=== PATIENT | male | born 1960 | race Caucasian/White ===

== ENCOUNTER 2019-12-19 13:48 | Inpatient (IN) | payer SELFPAY ==
[~2019-12-19] VITALS: Ht 180.3 cm; Wt 90.0 kg
[~2019-12-19 13:48] MED LIST: AMLO10TA4 PO; LAMO200T6 PO; LISI-130 PO; LITH300C PO; MIRT30TA PO
[2019-12-19] MEDS ORDERED: IV NORMAL SALINE 1000ML BAG 1,000 ML IV STA (14:17)
[2019-12-19] MEDS ORDERED: VANCOMYCIN 2 GM in IV NORMAL SALINE 500ML BAG 500 ML IV ONE (14:30)
--- NOTE | 2019-12-19 14:30 | PHYS DOC ---
Past Medical History Past Medical History: Anxiety, Bipolar, Depression, Hypertension, Other Additional Past Medical Histor: TESTICULAR CA Past Surgical History: Other Additional Past Surgical Histo: TESTICULAR SURGERY Smoking Status: Never Smoker Alcohol Use: Occasionally Drug Use: None Adult General Chief Complaint Chief Complaint: TOE PROBLEM HPI HPI Patient is a 59 year old male who presents with wound to his left great toe that started 2 days ago. The patient works at [employer] and has been wearing compression socks with multiple. The socks over the compression socks while working and states that he got a blister on his foot and then started dragging his foot due to the pain. He states the blister popped and then over the last several days he's had worsening wound that is now streaking up his left foot. He also has reduced sensation the left first digit. Denies pain as he has the reduced sensation. Review of Systems Review of Systems Constitutional: Denies fever or chills [] Eyes: Denies change in visual acuity, redness, or eye pain [] HENT: Denies nasal congestion or sore throat [] Respiratory: Denies cough or shortness of breath [] Cardiovascular: No additional information not addressed in HPI [] GI: Denies abdominal pain, nausea, vomiting, bloody stools or diarrhea [] : Denies dysuria or hematuria [] Musculoskeletal: Denies back pain or joint pain [] Integument: Reports wound to L 1st digit. Neurologic: Denies headache, focal weakness or sensory changes [] Endocrine: Denies polyuria or polydipsia [] Complete systems were reviewed and found to be within normal limits, except as documented in this note. Current Medications Current Medications Current Medications Medications (Trade) Dose Ordered Sig/Lis Start Time Stop Time Status Last Admin Dose Admin Fentanyl Citrate (Fentanyl 2ml Vial) 50 mcg PRN Q1HR PRN 12/19/19 16:00 12/20/19 15:59 Ondansetron HCl (Zofran) 4 mg PRN Q8HRS PRN 12/19/19 16:00 12/20/19 15:59 Piperacillin Sod/ Tazobactam Sod 3.375 gm/Sodium Chloride 50 ml @ 100 mls/hr 1X ONCE 12/19/19 15:45 12/19/19 16:14 Sodium Chloride 1,000 ml @ 1,000 mls/hr 1X STAT 12/19/19 14:17 12/19/19 15:16 DC 12/19/19 15:08 1,000 MLS/HR Vancomycin HCl 2 gm/Sodium Chloride 500 ml @ 250 mls/hr 1X ONCE 12/19/19 14:30 12/19/19 16:29 12/19/19 15:09 250 MLS/HR Allergies Allergies Allergies Coded Allergies Type Severity Reaction Last Updated Verified codeine Allergy Intermediate 06/11/19 Yes cyclobenzaprine Allergy Intermediate 06/11/19 Yes naproxen Allergy Intermediate 06/11/19 Yes tramadol Allergy Intermediate 06/11/19 Yes Physical Exam Physical Exam Constitutional: Well developed, well nourished, no acute distress, non-toxic appearance. [] HENT: Normocephalic, atraumatic, bilateral external ears normal, oropharynx moist, no oral exudates, nose normal. [] Eyes: PERRLA, EOMI, conjunctiva normal, no discharge. [] Neck: Normal range of motion, no tenderness, supple, no stridor. [] Cardiovascular:Heart rate regular rhythm, no murmur [] Lungs & Thorax: Bilateral breath sounds clear to auscultation [] Skin: demaculated skin with white strips showing in the fascia of the dorsal great toe, 1st digit has severe edema with streaking up the L foot. Back: No tenderness, no CVA tenderness. [] Extremities: See note on skin. Reduced sensation to L great toe. Neurologic: Alert and oriented X 3, normal motor function, normal sensory function, no focal deficits noted. [] Psychologic: Affect normal, judgement normal, mood normal. [] Current Patient Data Vital Signs Vital Signs Date Time Temp Pulse Resp B/P (MAP) Pulse Ox O2 Delivery O2 Flow Rate FiO2 12/19/19 15:41 70 14 149/68 (95) 98 Room Air 12/19/19 14:05 98.6 98.6 Lab Values Laboratory Tests Test 12/19/19 14:49 White Blood Count 6.3 x10^3/uL (4.0-11.0) Red Blood Count 3.29 x10^6/uL (4.30-5.70) L Hemoglobin 10.7 g/dL (13.0-17.5) L Hematocrit 30.9 % (39.0-53.0) L Mean Corpuscular Volume 94 fL (79-100) Mean Corpuscular Hemoglobin 33 pg (25-35) Mean Corpuscular Hemoglobin Concent 35 g/dL (31-37) Red Cell Distribution Width 13.5 % (11.5-14.5) Platelet Count 133 x10^3/uL (140-400) L Neutrophils (%) (Auto) 69 % (31-73) Lymphocytes (%) (Auto) 21 % (24-48) L Monocytes (%) (Auto) 8 % (0-9) Eosinophils (%) (Auto) 2 % (0-3) Basophils (%) (Auto) 1 % (0-3) Neutrophils # (Auto) 4.3 x10^3/uL (1.8-7.7) Lymphocytes # (Auto) 1.3 x10^3/uL (1.0-4.8) Monocytes # (Auto) 0.5 x10^3/uL (0.0-1.1) Eosinophils # (Auto) 0.1 x10^3/uL (0.0-0.7) Basophils # (Auto) 0.0 x10^3/uL (0.0-0.2) Sodium Level 136 mmol/L (136-145) Potassium Level 4.3 mmol/L (3.5-5.1) Chloride Level 101 mmol/L (98-107) Carbon Dioxide Level 26 mmol/L (21-32) Anion Gap 9 (6-14) Blood Urea Nitrogen 14 mg/dL (8-26) Creatinine 1.4 mg/dL (0.7-1.3) H Estimated GFR (Cockcroft-Gault) 51.7 BUN/Creatinine Ratio 10 (6-20) Glucose Level 101 mg/dL (70-99) H Lactic Acid Level 0.7 mmol/L (0.4-2.0) Calcium Level 9.2 mg/dL (8.5-10.1) Total Bilirubin 0.5 mg/dL (0.2-1.0) Aspartate Amino Transferase (AST) 28 U/L (15-37) Alanine Aminotransferase (ALT) 28 U/L (16-63) Alkaline Phosphatase 91 U/L (46-116) Total Protein 7.6 g/dL (6.4-8.2) Albumin 4.0 g/dL (3.4-5.0) Albumin/Globulin Ratio 1.1 (1.0-1.7) Laboratory Tests 12/19/19 14:49 Laboratory Tests 12/19/19 14:49 EKG EKG [] Radiology/Procedures Radiology/Procedures [][facility] [address] [place] [address] IMAGING REPORT Signed PATIENT: MELVINA GUSMAN ACCOUNT: [id number] : 1960 LOCATION: ER AGE: 59 SEX: M EXAM STATUS: REG ER ORD. PHYSICIAN: NAN PULIDO APRN REASON: wound to left foot PROCEDURE: FOOT LEFT 3V Exam performed:Left foot 3 views. Indication: Left foot injury Date of Service: 12/19/2019. Comparison: None available Three views left foot findings: Normal alignment is preserved. There is no acute fracture or dislocation. There is extensive soft tissue swelling in relation to the first toe consistent with a given history of bone. No soft tissue foreign body is seen. There is no periosteal reaction or bony erosion. Impression: 1. Diffuse soft tissue swelling around the first toe without underlying bony abnormality. Electronically signed by: Noelle Miramontes MD (12/19/2019 2:50 PM) [facility] DICTATED and SIGNED BY: NOELLE MIRAMONTES MD DATE: 12/19/19 5482 Course & Med Decision Making Course & Med Decision Making Pertinent Labs and Imaging studies reviewed. (See chart for details) Will get X-ray, labs, and will start on vancomycin and Zosyn.. Labs are unremarkable. Discussed patient with Dr. Fairchild who agrees to admission. Dragon Disclaimer Dragon Disclaimer This electronic medical record was generated, in whole or in part, using a voice recognition dictation system. Departure Departure Impression: Primary Impression: Cellulitis of foot, left Disposition: ADMITTED INPATIENT Condition: STABLE Referrals: UNKNOWN PCP NAME (PCP) NAN PULIDO APRN Dec 19, 2019 14:30
--- NOTE | 2019-12-19 14:52 | RAD ---
Exam performed:Left foot 3 views. Indication: Left foot injury Date of Service: 12/19/2019. Comparison: None available Three views left foot findings: Normal alignment is preserved. There is no acute fracture or dislocation. There is extensive soft tissue swelling in relation to the first toe consistent with a given history of bone. No soft tissue foreign body is seen. There is no periosteal reaction or bony erosion. Impression: 1. Diffuse soft tissue swelling around the first toe without underlying bony abnormality. Electronically signed by: Noelle Miramontes MD (12/19/2019 2:50 PM) [facility]
[2019-12-19 15:01] LABS: BASO % 1 % (0-3); EOS # 0.1 x10^3/uL (0.0-0.7); EOS % 2 % (0-3); HEMATOCRIT 30.9 % (39.0-53.0); HEMOGLOBIN 10.7 g/dL (13.0-17.5); LYMPH # 1.3 x10^3/uL (1.0-4.8); LYMPH % 21 % (24-48); MEAN CORPUSCULAR HEMOGLOBIN 33 pg (25-35); MEAN CORPUSCULAR HGB CONC 35 g/dL (31-37); MEAN CORPUSCULAR VOLUME 94 fL (79-100); MONO # 0.5 x10^3/uL (0.0-1.1); MONO % 8 % (0-9); NEUT # 4.3 x10^3/uL (1.8-7.7); NEUT % 69 % (31-73); PLATELET COUNT 133 x10^3/uL (140-400); RED BLOOD COUNT 3.29 x10^6/uL (4.30-5.70); RED CELL DISTRIBUTION WIDTH 13.5 % (11.5-14.5); WHITE BLOOD COUNT 6.3 x10^3/uL (4.0-11.0)
[2019-12-19 15:18] LABS: CALCIUM 9.2 mg/dL (8.5-10.1); CREATININE 1.4 mg/dL (0.7-1.3); GFR 51.7; POTASSIUM 4.3 mmol/L (3.5-5.1)
[2019-12-19 15:22] LABS: ALBUMIN/GLOBULIN RATIO 1.1 (1.0-1.7); TOTAL BILIRUBIN 0.5 mg/dL (0.2-1.0); TOTAL PROTEIN 7.6 g/dL (6.4-8.2)
[2019-12-19] MEDS ORDERED: PIPERACILLIN/TAZOBACTAM 3.375 GM in IV NORMAL SALINE 50ML 50 ML IV ONE (15:45)
[2019-12-19] MEDS ORDERED: ONDANSETRON PF 4 MG/2 ML VIAL. IV PRN (16:00)
[2019-12-19] MEDS ORDERED: fentaNYL PF VIAL 100 MCG/2 ML VIAL IV PRN (16:00)
[2019-12-19 16:30] VITALS: BP 150/65
[2019-12-19] MEDS ORDERED: LAMO300T2 PO (17:18)
[2019-12-19] MEDS ORDERED: GABA300C18 PO (17:18)
[2019-12-19] MEDS ORDERED: ESZO2TAB21 PO (17:18)
[2019-12-19] MEDS ORDERED: FLU VAX QS 2019-20 (36MOS+)/PF 0.5 ML SYRINGE. VAX IM ONE (18:00)
[2019-12-19 19:00] VITALS: BP 134/61
[2019-12-19] MEDS ORDERED: PIP/TAZO PER PHARMACY MC PRN (19:30)
[2019-12-19] MEDS: VANCOMYCIN PER PHARMACY MC PRN (19:42)
--- NOTE | 2019-12-19 19:44 | NUR ---
Pharmacy Vancomycin Dosing Note S:Consulted to monitor and dose vancomycin started 12/19/19. O:MELVINA GUSMAN is a 59 year old M with Cellulitis . Height: 5 feet, 11 inches Weight: 90.0 kg [place] Body Weight: 75.30 Adjusted Body Weight: 81.18 Dosing Weight: Actual Other Antibiotics: ZOSYN LABS: Last BUN: 14 Last Creatinine: 1.4 Creatinine Clearance: 64 mL/min Last WBC: 6.3 Last Procalcitonin: Tmax (past 24 hours): 98.6 Microbiology: I/O: Drug Levels: Last level: on at Last dose given 12/19/19 at 1509 Vancomycin Dosing: Loading Dose: 2000 mg x1 Dosing Weight: Actual Target Trough: 10-20 A: Based on: Body weight and renal function P: 1. After loading dose, start Vancomycin 1250 mg IV q12h 2. Follow up Trough level on 12/21/19 at 0230 3. Pharmacy will continue to monitor, follow and adjust therapy as needed. [facility], 12/19/19 1944
[2019-12-19] MEDS ORDERED: IBUPROFEN 400 MG TABLET. PO PRN (19:45)
--- NOTE | 2019-12-19 19:50 | PDOC1 ---
History and Physical Date of Admission Date of Admission DATE: 12/19/19 TIME: 19:49 Identification/Chief Complaint Chief Complaint Toe pain History of Present Illness History of Present Illness Mr Galvan is a 59 yo M w/ PMHx Anxiety, Bipolar, Depression, Hypertension, te sticular cancer s/p orchiectomy who presents with wound to his left great toe that started 2 days ago. He states works at [employer] and has been wearing compression socks with multiple other layers of socks and wearing socks to bed. The socks over the compression socks while working and states that he got a blister on his foot and then started dragging his foot due to the pain. He s tates the blister popped and then over the last several days he's had worsening wound that is now streaking up his left foot. He also has reduced sensation the left first digit. Denies pain as he has the reduced sensation. Xray shows no bony destruction but soft tissue swelling. Cr 1.4 with no history of renal issues Past Medical History Cardiovascular: HTN Psych: Anxiety, Bipolar, Depression Past Surgical History Past Surgical History: Other (orchiectomy) Family History Family History: Depression, Hypertension Social History Smoke: No ALCOHOL: heavy Drugs: None Current Problem List Problem List Problems Medical Problems: (1) Cellulitis of foot, left Status: Acute Current Medications Current Medications Current Medications Sodium Chloride 1,000 ml @ 1,000 mls/hr 1X STAT IV Last administered on 12/19/19at 15:08; Start 12/19/19 at 14:17; Stop 12/19/19 at 15:16; Status DC Vancomycin HCl 2 gm/Sodium Chloride 500 ml @ 250 mls/hr 1X ONCE IV Last administered on 12/19/19at 15:09; Start 12/19/19 at 14:30; Stop 12/19/19 at 16:29; Status DC Piperacillin Sod/ Tazobactam Sod 3.375 gm/Sodium Chloride 50 ml @ 100 mls/hr 1X ONCE IV Last administered on 12/19/19at 18:33; Start 12/19/19 at 15:45; Stop 12/19/19 at 16:14; Status DC Ondansetron HCl (Zofran) 4 mg PRN Q8HRS PRN IV NAUSEA/VOMITING; Start 12/19/19 at 16:00; Stop 12/20/19 at 15:59 Fentanyl Citrate (Fentanyl 2ml Vial) 50 mcg PRN Q1HR PRN IV PAIN; Start 12/19/19 at 16:00; Stop 12/20/19 at 15:59 Influenza Virus Vaccine Quadrival (Afluria Quad 2019-20 (3yr Up) Syringe) 0.5 ml ONCE ONCE VAX IM ; Start 12/19/19 at 18:00; Stop 12/19/19 at 18:01; Status DC Acetaminophen (Tylenol) 650 mg PRN Q6HRS PRN PO MILD PAIN 1-3; Start 12/19/19 at 19:30 Piperacillin Sod/ Tazobactam Sod (Zosyn Per Pharmacy) 1 each PRN DAILY PRN MC SEE COMMENTS; Start 12/19/19 at 19:30 Vancomycin HCl (Vanco Per Pharmacy) 1 each PRN DAILY PRN MC SEE COMMENTS Last administered on 12/19/19at 19:42; Start 12/19/19 at 19:30 Sodium Chloride 1,000 ml @ 75 mls/hr [id number] IV ; Start 12/19/19 at 20:00 Amlodipine Besylate (Norvasc) 10 mg DAILY08 PO ; Start 12/20/19 at 08:00 Gabapentin (Neurontin) 300 mg TID PO ; Start 12/19/19 at 21:00 Zolpidem Tartrate (Ambien) 5 mg QHS PO ; Start 12/19/19 at 21:00 Lamotrigine (LaMICtal) 300 mg DAILY PO ; Start 12/20/19 at 09:00 Mirtazapine (Remeron) 30 mg QHS PO ; Start 12/19/19 at 21:00 Piperacillin Sod/ Tazobactam Sod 3.375 gm/Sodium Chloride 50 ml @ 100 mls/hr Q6HRS IV ; Start 12/20/19 at 00:00 Vancomycin HCl 1.25 gm/Sodium Chloride 250 ml @ 167 mls/hr Q12H IV ; Start 12/20/19 at 03:00 Vancomycin HCl (Vancomycin Trough Level) 1 each 1X ONCE MC ; Start 12/21/19 at 02:30; Stop 12/21/19 at 02:31 Lactobacillus Rhamnosus (Culturelle) 1 cap BID PO ; Start 12/19/19 at 21:00 Ibuprofen (Motrin) 400 mg PRN Q6HRS PRN PO INFLAMMATION; Start 12/19/19 at 19:45 Active Scripts Active Reported Gabapentin (Gabapentin) 300 Mg Capsule 300 Mg PO TID Lunesta (Eszopiclone) 2 Mg Tablet 2 Mg PO HS Lamotrigine 300 Mg Tab.er.24 300 Mg PO DAILY Lisinopril 40 Mg Tablet 40 Mg PO DAILY Norvasc (Amlodipine Besylate) 10 Mg Tablet 10 Mg PO DAILY08 Remeron (Mirtazapine) 30 Mg Tablet 30 Mg PO QHS Allergies Allergies: Coded Allergies: codeine (Verified Allergy, Intermediate, 06/11/19) cyclobenzaprine (Verified Allergy, Intermediate, 06/11/19) tramadol (Verified Allergy, Intermediate, 06/11/19) ROS General: YES: Fatigue, Malaise; No: Chills, Night Sweats, Appetite, Other PSYCHOLOGICAL ROS: YES: Anxiety; No: Behavioral Disorder, Concentration difficultie, Decreased libido, D epression, Disorientation, Hallucinations, Hostility, Irritablity, Memory difficulties, Mood Swings, Obsessive thoughts, Physical abuse, Sexual abuse, Sleep disturbances, Suicidal ideation, Other Eyes: No Blurry vision, No Decreased vision, No Double vision, No Dry eyes, No Excessive tearing, No Eye Pain, No Itchy Eyes, No Loss of vision, No Photophobia, No Scotomata, No Uses contacts, No Uses glasses, No Other HEENT: No: Heacaches, Visual Changes, Hearing change, Nasal congestion, Nasal discharge, Oral lesions, Sinus pain, Sore Throat, Epistaxis, Sneezing, Snoring, Tinnitus, Vertigo, Vocal changes, Other ALLERGY AND IMMUNOLOGY: No: Hives, Insect Bite Sensitivity, Itchy/Watery Eyes, Nasal Congestion, Post Nasal Drip, Seasonal Allergies, Other Hematological and Lymphatic: No: Bleeding Problems, Blood Clots, Blood Transfusions, Brusing, Night Sweats, Pallor, Swollen Lymph Nodes, Other ENDOCRINE: No: Breast Changes, Galactorrhea, Hair Pattern Changes, Hot Flashes, Malaise/lethargy, Mood Swings, Palpitations, Polydipsia/polyuria, Skin Changes, Temperature Intolerance, Unexpected Weight Changes, Other Breast: No New/Changing Breast Lumps, No Nipple changes, No Nipple discharge, No Other Respiratory: No: Cough, Hemoptysis, Orthopnea, Pleuritic Pain, Shortness of breath, SOB with excertion, Sputum Changes, Stridor, Tachypnea, Wheezing, Other Cardiovascular: No Chest Pain, No Palpitations, No Orthopnea, No Paroxysmal Noc. Dyspnea, No Edema, No Lt Headedness, No Other Gastrointestinal: No Nausea, No Vomiting, No Abdominal Pain, No Diarrhea, No Constipation, No Melena, No Hematochezia, No Other Genitourinary: No Dysuria, No Frequency, No Incontinence, No Hematuria, No Retention, No Discharge, No Urgency, No Pain, No Flank Pain, No Other, No , No , No , No , No , No , No Musculoskeletal: Yes Gait Disturbance, Yes Joint Swelling; No Joint Pain, No Joint Stiffness, No Muscle Pain, No Muscular Weakness, No Pain In:, No Swelling In:, No Other Neurological: Yes Gait Disturbance, Yes Numbness/Tingling; No Behavorial Changes, No Bowel/Bladder ControlChng, No Confusion, No Dizziness, No Headaches, No Impaired Coord/balance, No Memory Loss, No Seizures, No Speech Problems, No Tremors, No Visual Changes, No Weakness, No Other Skin: Yes Dry Skin; No Eczema, No Hair Changes, No Lumps, No Mole Changes, No Mottling, No Nail Changes, No Pruritus, No Rash, No Skin Lesion Changes, No Other, No Acne Physical Exam General: Alert, Oriented X3, Cooperative, No acute distress HEENT: Atraumatic, PERRLA, EOMI, Mucous membr. moist/pink Lungs: Clear to auscultation, Normal air movement Heart: S1S2, RRR, no thrills, no rubs, no gallops, no murmurs Abdomen: Normal bowel sounds, Soft, No tenderness, No hepatosplenomegaly, No masses Rectal Exam: not examined Extremities: No clubbing, No cyanosis, No edema, Normal pulses, Other (left cage tender and swollen) Skin: No breakdown, Other (left great toe with open wound) Neuro: Normal speech, Strength at 5/5 X4 ext, Normal tone, Sensation intact, Cranial nerves 3-12 NL, Reflexes 2+ Psych/Mental Status: Mental status NL, Mood NL Vitals Vitals Vital Signs Date Time Temp Pulse Resp B/P (MAP) Pulse Ox O2 Delivery O2 Flow Rate FiO2 12/19/19 18:22 Room Air 12/19/19 16:30 98.1 79 18 150/65 (93) 99 98.1 Labs Labs Laboratory Tests Test 12/19/19 14:49 White Blood Count 6.3 x10^3/uL (4.0-11.0) Red Blood Count 3.29 x10^6/uL (4.30-5.70) Hemoglobin 10.7 g/dL (13.0-17.5) Hematocrit 30.9 % (39.0-53.0) Mean Corpuscular Volume 94 fL (79-100) Mean Corpuscular Hemoglobin 33 pg (25-35) Mean Corpuscular Hemoglobin Concent 35 g/dL (31-37) Red Cell Distribution Width 13.5 % (11.5-14.5) Platelet Count 133 x10^3/uL (140-400) Neutrophils (%) (Auto) 69 % (31-73) Lymphocytes (%) (Auto) 21 % (24-48) Monocytes (%) (Auto) 8 % (0-9) Eosinophils (%) (Auto) 2 % (0-3) Basophils (%) (Auto) 1 % (0-3) Neutrophils # (Auto) 4.3 x10^3/uL (1.8-7.7) Lymphocytes # (Auto) 1.3 x10^3/uL (1.0-4.8) Monocytes # (Auto) 0.5 x10^3/uL (0.0-1.1) Eosinophils # (Auto) 0.1 x10^3/uL (0.0-0.7) Basophils # (Auto) 0.0 x10^3/uL (0.0-0.2) Sodium Level 136 mmol/L (136-145) Potassium Level 4.3 mmol/L (3.5-5.1) Chloride Level 101 mmol/L (98-107) Carbon Dioxide Level 26 mmol/L (21-32) Anion Gap 9 (6-14) Blood Urea Nitrogen 14 mg/dL (8-26) Creatinine 1.4 mg/dL (0.7-1.3) Estimated GFR (Cockcroft-Gault) 51.7 BUN/Creatinine Ratio 10 (6-20) Glucose Level 101 mg/dL (70-99) Lactic Acid Level 0.7 mmol/L (0.4-2.0) Calcium Level 9.2 mg/dL (8.5-10.1) Total Bilirubin 0.5 mg/dL (0.2-1.0) Aspartate Amino Transf (AST/SGOT) 28 U/L (15-37) Alanine Aminotransferase (ALT/SGPT) 28 U/L (16-63) Alkaline Phosphatase 91 U/L (46-116) Total Protein 7.6 g/dL (6.4-8.2) Albumin 4.0 g/dL (3.4-5.0) Albumin/Globulin Ratio 1.1 (1.0-1.7) Laboratory Tests Test 12/19/19 14:49 White Blood Count 6.3 x10^3/uL (4.0-11.0) Red Blood Count 3.29 x10^6/uL (4.30-5.70) Hemoglobin 10.7 g/dL (13.0-17.5) Hematocrit 30.9 % (39.0-53.0) Mean Corpuscular Volume 94 fL (79-100) Mean Corpuscular Hemoglobin 33 pg (25-35) Mean Corpuscular Hemoglobin Concent 35 g/dL (31-37) Red Cell Distribution Width 13.5 % (11.5-14.5) Platelet Count 133 x10^3/uL (140-400) Neutrophils (%) (Auto) 69 % (31-73) Lymphocytes (%) (Auto) 21 % (24-48) Monocytes (%) (Auto) 8 % (0-9) Eosinophils (%) (Auto) 2 % (0-3) Basophils (%) (Auto) 1 % (0-3) Neutrophils # (Auto) 4.3 x10^3/uL (1.8-7.7) Lymphocytes # (Auto) 1.3 x10^3/uL (1.0-4.8) Monocytes # (Auto) 0.5 x10^3/uL (0.0-1.1) Eosinophils # (Auto) 0.1 x10^3/uL (0.0-0.7) Basophils # (Auto) 0.0 x10^3/uL (0.0-0.2) Sodium Level 136 mmol/L (136-145) Potassium Level 4.3 mmol/L (3.5-5.1) Chloride Level 101 mmol/L (98-107) Carbon Dioxide Level 26 mmol/L (21-32) Anion Gap 9 (6-14) Blood Urea Nitrogen 14 mg/dL (8-26) Creatinine 1.4 mg/dL (0.7-1.3) Estimated GFR (Cockcroft-Gault) 51.7 BUN/Creatinine Ratio 10 (6-20) Glucose Level 101 mg/dL (70-99) Lactic Acid Level 0.7 mmol/L (0.4-2.0) Calcium Level 9.2 mg/dL (8.5-10.1) Total Bilirubin 0.5 mg/dL (0.2-1.0) Aspartate Amino Transf (AST/SGOT) 28 U/L (15-37) Alanine Aminotransferase (ALT/SGPT) 28 U/L (16-63) Alkaline Phosphatase 91 U/L (46-116) Total Protein 7.6 g/dL (6.4-8.2) Albumin 4.0 g/dL (3.4-5.0) Albumin/Globulin Ratio 1.1 (1.0-1.7) Images Images 1. Diffuse soft tissue swelling around the first toe without underlying bony abnormality. VTE Prophylaxis Ordered VTE Prophylaxis Devices: No VTE Pharmacological Prophylaxi: Yes Assessment/Plan Assessment/Plan A/P: Left great toe open wound - wound care, dressing, pain control, antibiotics Left foot cellulitis - with streaking. requires inpatient given the severity and quick onset, would have failed outpatient therapy. Vancomycin and zosyn to cover gram positive and gram negatives Polyneuropathy - 2/2 heavy ETOH abuse historically, states he is quitting [facility] - likely vasomotor nephropathy, will give IVF, watch renal function given his antibiotics Anxiety, Bipolar, Depression - will cont lamictal, gabapentin Hypertension - cont meds Testicular cancer s/p orchiectomy - in remission FEN - General diet PPX - lovenox FULL CODE Dispo - inpatient for aggressive left foot cellulitis LILY PARTIDA MD Dec 19, 2019 19:50
[2019-12-19] MEDS: GABAPENTIN 300 MG CAPSULE. PO SCH (21:00)
[2019-12-19] MEDS: ZOLPIDEM 5 MG TABLET. PO SCH (21:00)
[2019-12-19] MEDS: MIRTAZAPINE 15 MG TABLET PO SCH (21:00)
[2019-12-19] MEDS: LACTOBACILLUS RHAMNOSUS GG 1 CAPSULE. PO SCH (21:00)
[2019-12-19] MEDS: IV NORMAL SALINE 1000ML BAG 1,000 ML IV SCH (21:21)
[2019-12-19] MEDS: ACETAMINOPHEN 325 MG TABLET. PO PRN (21:22)
[2019-12-19 23:00] VITALS: BP 108/59
[2019-12-20] VITALS (12 sets, daily range): BP systolic 105–136; BP diastolic 46–71
[2019-12-20] MEDS: PIPERACILLIN/TAZOBACTAM 3.375 GM in IV NORMAL SALINE 50ML 50 ML IV SCH ×4 (00:48→18:32)
[2019-12-20] MEDS: VANCOMYCIN 1.25 GM in IV NORMAL SALINE 250ML 250 ML IV SCH ×2 (02:43→14:23)
[2019-12-20 04:45] LABS: C-REACTIVE PROTEIN 21.7 mg/L (0-3.3); CREATININE 1.2 mg/dL (0.7-1.3); GFR 61.8
[2019-12-20] MEDS: amLODIPine BESYLATE 10 MG TABLET PO SCH (08:00)
[2019-12-20] MEDS: LACTOBACILLUS RHAMNOSUS GG 1 CAPSULE. PO SCH ×2 (09:00→21:07)
[2019-12-20] MEDS: GABAPENTIN 300 MG CAPSULE. PO SCH ×3 (09:00→21:08)
[2019-12-20] MEDS: lamoTRIgine 100 MG TABLET. PO SCH (09:00)
[2019-12-20] MEDS: ACETAMINOPHEN 325 MG TABLET. PO PRN (09:10)
[2019-12-20] MEDS: IV NORMAL SALINE 1000ML BAG 1,000 ML IV SCH ×2 (09:13→23:09)
--- NOTE | 2019-12-20 09:14 | NUR ---
SW following. Discussed with RN, pt from home with . Surgery today at 1130. HCFS following for self pay status. SW will continue to follow.
[2019-12-20] MEDS: VANCOMYCIN PER PHARMACY MC PRN (11:45)
[2019-12-20] MEDS ORDERED: LIDOCAINE 2% PF 5 ML VIAL. ONE (13:34)
[2019-12-20] MEDS ORDERED: PROPOFOL 20 ML IV ONE (13:34)
[2019-12-20] MEDS ORDERED: fentaNYL PF VIAL 100 MCG/2 ML VIAL ONE (13:34)
[2019-12-20] MEDS ORDERED: ONDANSETRON PF 4 MG/2 ML VIAL. ONE (13:35)
[2019-12-20] MEDS ORDERED: DEXAMETHASONE SOD PHOS 4 MG/ML VIAL ONE (13:35)
--- NOTE | 2019-12-20 13:54 | NUR ---
Pt off unit with transportation via bed for surgery.
[2019-12-20] MEDS ORDERED: SEVOFLURANE 31 TO 60 MINUTES. IH ONE (14:51)
[2019-12-20] MEDS ORDERED: ePHEDrine PF IN SALINE 50 MG/10 ML SYRINGE. IV ONE (14:51)
--- NOTE | 2019-12-20 16:13 | PDOC ---
PROGRESS NOTES Chief Complaint Chief Complaint Left great toe open wound - wound care, dressing, pain control, antibiotics Left foot cellulitis - with streaking. requires inpatient given the severity and quick onset, would have failed outpatient therapy. Vancomycin and zosyn to cover gram positive and gram negatives Polyneuropathy - 2/2 heavy ETOH abuse historically, states he is quitting [facility] - likely vasomotor nephropathy, will give IVF, watch renal function given his antibiotics Anxiety, Bipolar, Depression - will cont lamictal, gabapentin Hypertension - cont meds Testicular cancer s/p orchiectomy - in remission History of Present Illness History of Present Illness surg I+D today cont current g try to DC in AM Vitals Vitals Vital Signs Date Time Temp Pulse Resp B/P (MAP) Pulse Ox O2 Delivery O2 Flow Rate FiO2 12/20/19 15:37 97.8 70 20 153/43 97 Room Air 97.8 12/20/19 14:52 10 Physical Exam General: Alert, Oriented X3, Cooperative, No acute distress Lungs: Clear Abdomen: Normal bowel sounds, Soft, No tenderness, No hepatosplenomegaly, No masses Extremities: No clubbing, No cyanosis, No edema, Normal pulses, Other (left dye range tender and swollen) Skin: No breakdown, Other (left great toe with open wound) Labs LABS Laboratory Tests Test 12/20/19 03:40 Erythrocyte Sedimentation Rate 50 (0-15) Creatinine 1.2 mg/dL (0.7-1.3) Estimated GFR (Cockcroft-Gault) 61.8 C-Reactive Protein, Quantitative 21.7 mg/L (0-3.3) Assessment and Plan Assessmemt and Plan Problems Medical Problems: (1) Cellulitis of foot, left Status: Acute Comment Review of Relevant I have reviewed the following items anupam (where applicable) has been applied. Labs Laboratory Tests Test 12/19/19 14:49 12/20/19 03:40 White Blood Count 6.3 x10^3/uL (4.0-11.0) Red Blood Count 3.29 x10^6/uL (4.30-5.70) Hemoglobin 10.7 g/dL (13.0-17.5) Hematocrit 30.9 % (39.0-53.0) Mean Corpuscular Volume 94 fL (79-100) Mean Corpuscular Hemoglobin 33 pg (25-35) Mean Corpuscular Hemoglobin Concent 35 g/dL (31-37) Red Cell Distribution Width 13.5 % (11.5-14.5) Platelet Count 133 x10^3/uL (140-400) Neutrophils (%) (Auto) 69 % (31-73) Lymphocytes (%) (Auto) 21 % (24-48) Monocytes (%) (Auto) 8 % (0-9) Eosinophils (%) (Auto) 2 % (0-3) Basophils (%) (Auto) 1 % (0-3) Neutrophils # (Auto) 4.3 x10^3/uL (1.8-7.7) Lymphocytes # (Auto) 1.3 x10^3/uL (1.0-4.8) Monocytes # (Auto) 0.5 x10^3/uL (0.0-1.1) Eosinophils # (Auto) 0.1 x10^3/uL (0.0-0.7) Basophils # (Auto) 0.0 x10^3/uL (0.0-0.2) Sodium Level 136 mmol/L (136-145) Potassium Level 4.3 mmol/L (3.5-5.1) Chloride Level 101 mmol/L (98-107) Carbon Dioxide Level 26 mmol/L (21-32) Anion Gap 9 (6-14) Blood Urea Nitrogen 14 mg/dL (8-26) Creatinine 1.4 mg/dL (0.7-1.3) 1.2 mg/dL (0.7-1.3) Estimated GFR (Cockcroft-Gault) 51.7 61.8 BUN/Creatinine Ratio 10 (6-20) Glucose Level 101 mg/dL (70-99) Lactic Acid Level 0.7 mmol/L (0.4-2.0) Calcium Level 9.2 mg/dL (8.5-10.1) Total Bilirubin 0.5 mg/dL (0.2-1.0) Aspartate Amino Transf (AST/SGOT) 28 U/L (15-37) Alanine Aminotransferase (ALT/SGPT) 28 U/L (16-63) Alkaline Phosphatase 91 U/L (46-116) Total Protein 7.6 g/dL (6.4-8.2) Albumin 4.0 g/dL (3.4-5.0) Albumin/Globulin Ratio 1.1 (1.0-1.7) Erythrocyte Sedimentation Rate 50 (0-15) C-Reactive Protein, Quantitative 21.7 mg/L (0-3.3) Laboratory Tests Test 12/20/19 03:40 Erythrocyte Sedimentation Rate 50 (0-15) Creatinine 1.2 mg/dL (0.7-1.3) Estimated GFR (Cockcroft-Gault) 61.8 C-Reactive Protein, Quantitative 21.7 mg/L (0-3.3) Microbiology 12/19/19 Blood Culture - Preliminary, Resulted NO GROWTH AFTER 1 DAY Medications Current Medications Sodium Chloride 1,000 ml @ 1,000 mls/hr 1X STAT IV Last administered on 12/19/19at 15:08; Start 12/19/19 at 14:17; Stop 12/19/19 at 15:16; Status DC Vancomycin HCl 2 gm/Sodium Chloride 500 ml @ 250 mls/hr 1X ONCE IV Last administered on 12/19/19at 15:09; Start 12/19/19 at 14:30; Stop 12/19/19 at 16:29; Status DC Piperacillin Sod/ Tazobactam Sod 3.375 gm/Sodium Chloride 50 ml @ 100 mls/hr 1X ONCE IV Last administered on 12/19/19at 18:33; Start 12/19/19 at 15:45; Stop 12/19/19 at 16:14; Status DC Ondansetron HCl (Zofran) 4 mg PRN Q8HRS PRN IV NAUSEA/VOMITING; Start 12/19/19 at 16:00; Stop 12/20/19 at 15:59; Status DC Fentanyl Citrate (Fentanyl 2ml Vial) 50 mcg PRN Q1HR PRN IV PAIN; Start 12/19/19 at 16:00; Stop 12/20/19 at 15:59; Status DC Influenza Virus Vaccine Quadrival (Afluria Quad 2019- (3yr Up) Syringe) 0.5 ml ONCE ONCE VAX IM ; Start 12/19/19 at 18:00; Stop 12/19/19 at 18:01; Status DC Acetaminophen (Tylenol) 650 mg PRN Q6HRS PRN PO MILD PAIN 1-3 Last administered on 12/20/19at 09:10; Start 12/19/19 at 19:30 Piperacillin Sod/ Tazobactam Sod (Zosyn Per Pharmacy) 1 each PRN DAILY PRN MC SEE COMMENTS; Start 12/19/19 at 19:30 Vancomycin HCl (Vanco Per Pharmacy) 1 each PRN DAILY PRN MC SEE COMMENTS Last administered on 12/20/19at 11:45; Start 12/19/19 at 19:30 Sodium Chloride 1,000 ml @ 75 mls/hr [id number] IV Last administered on 12/20/19at 09:13; Start 12/19/19 at 20:00 Amlodipine Besylate (Norvasc) 10 mg DAILY08 PO ; Start 12/20/19 at 08:00 Gabapentin (Neurontin) 300 mg TID PO ; Start 12/19/19 at 21:00 Zolpidem Tartrate (Ambien) 5 mg QHS PO ; Start 12/19/19 at 21:00 Lamotrigine (LaMICtal) 300 mg DAILY PO ; Start 12/20/19 at 09:00 Mirtazapine (Remeron) 30 mg QHS PO ; Start 12/19/19 at 21:00 Piperacillin Sod/ Tazobactam Sod 3.375 gm/Sodium Chloride 50 ml @ 100 mls/hr Q6HRS IV Last administered on 12/20/19at 12:43; Start 12/20/19 at 00:00 Vancomycin HCl 1.25 gm/Sodium Chloride 250 ml @ 167 mls/hr Q12H IV Last administered on 12/20/19at 14:23; Start 12/20/19 at 03:00 Vancomycin HCl (Vancomycin Trough Level) 1 each 1X ONCE MC ; Start 12/21/19 at 02:30; Stop 12/21/19 at 02:31 Lactobacillus Rhamnosus (Culturelle) 1 cap BID PO ; Start 12/19/19 at 21:00 Ibuprofen (Motrin) 400 mg PRN Q6HRS PRN PO INFLAMMATION; Start 12/19/19 at 19:45 Propofol 20 ml @ As Directed STK-MED ONCE IV ; Start 12/20/19 at 13:34; Stop 12/20/19 at 13:34; Status DC Lidocaine HCl (Lidocaine Pf 2% Vial) 5 ml STK-MED ONCE .ROUTE ; Start 12/20/19 at 13:34; Stop 12/20/19 at 13:34; Status DC Fentanyl Citrate (Fentanyl 2ml Vial) 100 mcg STK-MED ONCE .ROUTE ; Start 12/20/19 at 13:34; Stop 12/20/19 at 13:35; Status DC Dexamethasone Sodium Phosphate (Decadron) 4 mg STK-MED ONCE .ROUTE ; Start 12/20/19 at 13:35; Stop 12/20/19 at 13:35; Status DC Ondansetron HCl (Zofran) 4 mg STK-MED ONCE .ROUTE ; Start 12/20/19 at 13:35; Stop 12/20/19 at 13:35; Status DC Sevoflurane (Ultane) 30 ml STK-MED ONCE IH ; Start 12/20/19 at 14:51; Stop 12/20/19 at 14:51; Status DC Ephedrine Sulfate (ePHEDrine PF IN SALINE SYRINGE) 50 mg STK-MED ONCE IV ; Start 12/20/19 at 14:51; Stop 12/20/19 at 14:52; Status DC Active Scripts Active Reported Gabapentin (Gabapentin) 300 Mg Capsule 300 Mg PO TID Lunesta (Eszopiclone) 2 Mg Tablet 2 Mg PO HS Lamotrigine 300 Mg Tab.er.24 300 Mg PO DAILY Lisinopril 40 Mg Tablet 40 Mg PO DAILY Norvasc (Amlodipine Besylate) 10 Mg Tablet 10 Mg PO DAILY08 Remeron (Mirtazapine) 30 Mg Tablet 30 Mg PO QHS Vitals/I & O Vital Sign - Last 24 Hours 12/19/19 12/19/19 12/19/19 12/19/19 16:30 18:22 19:00 20:00 Temp 98.1 98.1 98.1 98.1 Pulse 79 72 Resp 18 18 B/P (MAP) 150/65 (93) 134/61 (85) Pulse Ox 99 96 O2 Delivery Room Air Room Air Room Air Room Air 12/19/19 12/20/19 12/20/19 12/20/19 23:00 03:00 07:00 09:00 Temp 97.8 97.7 98.4 97.8 97.7 98.4 Pulse 60 58 70 Resp 18 18 18 B/P (MAP) 108/59 (75) 124/49 (74) 122/56 (78) Pulse Ox 97 95 97 O2 Delivery Room Air Room Air Room Air Room Air 12/20/19 12/20/19 12/20/19 12/20/19 11:00 14:10 14:52 15:07 Temp 98.3 98.3 98.3 98.3 Pulse 74 70 70 67 Resp 18 15 20 20 B/P (MAP) 117/46 (69) 137/65 131/56 152/57 Pulse Ox 97 100 98 91 O2 Delivery Room Air Room Air Simple Mask Room Air O2 Flow Rate 10 12/20/19 12/20/19 15:22 15:37 Temp 97.8 97.8 Pulse 68 70 Resp 20 20 B/P (MAP) 153/43 Pulse Ox 99 97 O2 Delivery Room Air Room Air Intake and Output 12/19/19 12/19/19 12/20/19 15:00 23:00 07:00 Intake Total 1000 ml Output Total 1000 ml Balance 1000 ml -1000 ml GARRETT BILLY MD Dec 20, 2019 16:13
--- NOTE | 2019-12-20 16:37 | NUR ---
Wound Care: Attempted to see patient, patient having surgery today. Will follow up tomorrow.
--- NOTE | 2019-12-20 20:25 | PDOC4 ---
Operative Note Operative Note Date of surgery: 12/20/2019 Preoperative diagnosis: Left great toe wound with necrotic tissue Postoperative diagnosis: Same confined to skin and subcutaneous tissue Operative procedure: Irrigation debridement of left great toe wound Surgeon: Dylan Assist: Elias Lewis first coat operator Anesthesia: Gen. Estimated blood loss: 5 mL Complications: None Operative indications: Please see my dictated orthopedic consultation today for detailed operative indications and we discussed that this procedure was for the purpose of removing that tissue for the toe so he could undergo further wound care and hopefully avoid trapping any further infection. He asked how long the healing would be and I told him that would be an uncertain process but we could only do our best at this point to remove tissue potential he harboring infection allowing his body to heal in the most expeditious manner. There is also the possibility that he would require additional procedures if infection is persistent. All his questions were answered he wishes to proceed Operative text: Patient was identified procedure verified patient placed in the supine position on the operating table. After adequate amounts of general anesthesia were administered the left lower extremity was prepped and draped in standard sterile fashion and after timeout was performed patient procedure identified and verified the area of necrotic eschar present at the tip of the toe was debrided back to healthy subcutaneous tissue sharply with a scalpel and involved about a 2 cm round area altogether and skin around the wound was likewise debrided back to healthy stable tissue and the nail folds laterally were explored to remove any excess tissue but no infection appeared to be harbored in this area. Sterile dressings were applied patient was returned to recovery room in stable condition having tolerated procedure well TARIQ RAMOS MD Dec 20, 2019 20:25
[2019-12-20] MEDS: ZOLPIDEM 5 MG TABLET. PO SCH (21:00)
[2019-12-20] MEDS: MIRTAZAPINE 15 MG TABLET PO SCH (21:08)
--- NOTE | 2019-12-20 22:58 | CONS ---
DATE OF CONSULTATION: 12/20/2019 CHIEF COMPLAINT: Left great toe wound. 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 He indicates that there was about a day and a half of work altogether and normally wears some compression socks on his feet and does have some neuropathy with some chronic tingling type pain in his feet prior to all this. He said that just due to all the work, he was worried about not getting his compression socks back on and he left them on sleeping and noticed when he took him off that he got a blister on his foot and then developed more pain in his left great toe, resulting in his admission after the blister popped and his wound worsened and had some streaking redness up his left foot. PAST MEDICAL HISTORY: Significant for hypertension, depression, anxiety, bipolar disorder as well as testicular cancer. PAST SURGICAL HISTORY: Testicular cancer surgery. SOCIAL HISTORY: Denies smoking or drug use. Occasional use of alcohol. MEDICATIONS: I believe he had mentioned that he took gabapentin for the numbness in his feet. Other medication list is reviewed. ALLERGIES: INCLUDE CYCLOBENZAPRINE, CODEINE, NAPROXEN AND TRAMADOL. REVIEW OF SYSTEMS: Significant for the blistering of the left great toe, the history of more chronic neuropathy in his feet and he denies any diabetes or other major medical problems. No fever, chills, focal weakness, numbness or tingling. LABORATORY DATA: Laboratory examination includes white blood cell count of 6.3. PHYSICAL EXAMINATION: EXTREMITIES: Examination of the left great toe reveals an area of still moistened, but eschar like material that is over the distal tip of the toe. He said the toenail had fallen off previous. He does have some wound slough and potential of some purulence underneath the area of eschar and compromise of the skin superficially further back along the toe up to the interphalangeal joint. I do not see any redness, streaking up his foot at this point. The toe overall is swollen, primarily a little bit proximal to the interphalangeal joint area and some redness in the toe itself. Flexor and extensor function is intact. There is no tenosynovitis present of either the flexor or extensor. He has good motion of the remaining toes and no other involvement aside from some mild stocking distribution neuropathy, which is also present in the contralateral foot less severely. He does feel pressure overall, but decreased sensation, particularly over the left great toe, even proximally to the area of injury. He has normal alignment, stability of bilateral hips, knees and ankles. IMAGING: X-rays of the left foot showed diffuse soft tissue swelling of the great toe and no bony abnormality. IMPRESSION: 1. Left great toe wound. 2. History of some neuropathy, preexisting. TREATMENT PLAN: I went over with him that clearly, he has some signs of progressive infection based on what was going on at his admission. I think the area of eschar could be covering some devitalized tissue and I would recommend removing that to get back to more viable, less damaged tissue, so hopefully, the area can granulate in on its own with appropriate ongoing wound care. I went over with him that while there does not seem to be any bony involvement, currently if we do not get good skin coverage, eventually, certainly, progressive infection could occur, necessitating the current antibiotics and the recommended surgical treatment. He agrees to proceed with surgical evaluation and treatment, which can occur today, pending operating room availability. TARIQ RAMOS MD DR: PABLO/elham JOB#: [id number] / [id number]
[2019-12-21] MEDS: PIPERACILLIN/TAZOBACTAM 3.375 GM in IV NORMAL SALINE 50ML 50 ML IV SCH ×3 (00:10→12:00)
[2019-12-21] MEDS: ZOLPIDEM 5 MG TABLET. PO SCH (00:15)
[2019-12-21 02:51] LABS: VANC TR 11.8 mcg/mL (10.0-20.0)
[2019-12-21] MEDS: VANCOMYCIN PER PHARMACY MC PRN (03:18)
--- NOTE | 2019-12-21 03:19 | NUR ---
Pharmacy Vancomycin Dosing Note S: Consulted to monitor and dose vancomycin started 12/19/19. O: MELVINA GUSMAN is a 59 year old M with Cellulitis, . Other Antibiotics: ZOSYN LABS: Last BUN: 14 Last Creatinine: 1.2 Creatinine Clearance: 75 mL/min Last WBC: 6.3 Last Procalcitonin: Tmax (past 24 hours): 98.4 Microbiology: I/O: 1000/ 1000 Drug Levels: Last Trough level: 11.8 on 12/21/19 at 0230 Last dose given 12/20/19 at 1423 Vancomycin Dosing: Dosing Weight: Actual Target Trough: 10-20 A: Based on: Trough,Actual Wt and CrCl P: 1. 12/21/19 0300 Continue Vancomycin 1250 mg IV q12h 2. Follow up Trough level in 5 to 7 days as needed 3. Pharmacy will continue to monitor, follow and adjust therapy as needed. TIAGO RIOJAS RPH, 12/21/19 0319 Signed: 12/21/19 at 0320 by TIAGO RIOJAS RPH PHA
[2019-12-21] MEDS: VANCOMYCIN 1.25 GM in IV NORMAL SALINE 250ML 250 ML IV SCH ×2 (03:22→14:29)
[2019-12-21 03:50] VITALS: BP 125/64
[2019-12-21 07:00] VITALS: BP 147/76
[2019-12-21] MEDS: amLODIPine BESYLATE 10 MG TABLET PO SCH (08:41)
[2019-12-21] MEDS: LACTOBACILLUS RHAMNOSUS GG 1 CAPSULE. PO SCH (08:41)
[2019-12-21] MEDS: ACETAMINOPHEN 325 MG TABLET. PO PRN (08:41)
[2019-12-21] MEDS: lamoTRIgine 100 MG TABLET. PO SCH (08:42)
[2019-12-21] MEDS: GABAPENTIN 300 MG CAPSULE. PO SCH ×2 (08:42→14:00)
--- NOTE | 2019-12-21 08:45 | PDOC ---
ORTHO PROGRESS NOTES Subjective Patient states moderate pain in L Great toe Post-op Day: 1 Procedure I&D Left Great toe Vitals Vital Signs Date Time Temp Pulse Resp B/P (MAP) Pulse Ox O2 Delivery O2 Flow Rate FiO2 12/21/19 03:50 97.6 58 16 125/64 (84) 96 Room Air 97.6 12/20/19 14:52 10 Labs Laboratory Tests Test 12/19/19 14:49 12/20/19 03:40 12/21/19 02:30 White Blood Count 6.3 x10^3/uL (4.0-11.0) Red Blood Count 3.29 x10^6/uL (4.30-5.70) Hemoglobin 10.7 g/dL (13.0-17.5) Hematocrit 30.9 % (39.0-53.0) Mean Corpuscular Volume 94 fL (79-100) Mean Corpuscular Hemoglobin 33 pg (25-35) Mean Corpuscular Hemoglobin Concent 35 g/dL (31-37) Red Cell Distribution Width 13.5 % (11.5-14.5) Platelet Count 133 x10^3/uL (140-400) Neutrophils (%) (Auto) 69 % (31-73) Lymphocytes (%) (Auto) 21 % (24-48) Monocytes (%) (Auto) 8 % (0-9) Eosinophils (%) (Auto) 2 % (0-3) Basophils (%) (Auto) 1 % (0-3) Neutrophils # (Auto) 4.3 x10^3/uL (1.8-7.7) Lymphocytes # (Auto) 1.3 x10^3/uL (1.0-4.8) Monocytes # (Auto) 0.5 x10^3/uL (0.0-1.1) Eosinophils # (Auto) 0.1 x10^3/uL (0.0-0.7) Basophils # (Auto) 0.0 x10^3/uL (0.0-0.2) Sodium Level 136 mmol/L (136-145) Potassium Level 4.3 mmol/L (3.5-5.1) Chloride Level 101 mmol/L (98-107) Carbon Dioxide Level 26 mmol/L (21-32) Anion Gap 9 (6-14) Blood Urea Nitrogen 14 mg/dL (8-26) Creatinine 1.4 mg/dL (0.7-1.3) 1.2 mg/dL (0.7-1.3) Estimated GFR (Cockcroft-Gault) 51.7 61.8 BUN/Creatinine Ratio 10 (6-20) Glucose Level 101 mg/dL (70-99) Lactic Acid Level 0.7 mmol/L (0.4-2.0) Calcium Level 9.2 mg/dL (8.5-10.1) Total Bilirubin 0.5 mg/dL (0.2-1.0) Aspartate Amino Transf (AST/SGOT) 28 U/L (15-37) Alanine Aminotransferase (ALT/SGPT) 28 U/L (16-63) Alkaline Phosphatase 91 U/L (46-116) Total Protein 7.6 g/dL (6.4-8.2) Albumin 4.0 g/dL (3.4-5.0) Albumin/Globulin Ratio 1.1 (1.0-1.7) Erythrocyte Sedimentation Rate 50 (0-15) C-Reactive Protein, Quantitative 21.7 mg/L (0-3.3) Vancomycin Level Trough 11.8 mcg/mL (10.0-20.0) Vancomycin Last Dose Date 12/20/19 Vancomycin Last Dose Time 1500 Laboratory Tests Test 12/21/19 02:30 Vancomycin Level Trough 11.8 mcg/mL (10.0-20.0) Vancomycin Last Dose Date 12/20/19 Vancomycin Last Dose Time 1500 Notes awake and alert walking around his room. Assessment and Plan POD # 1 S/P I&D Left Great toe blister motor and sensation intact with neuropathy dressing was off on arrival to room with xeroform remaining. Wound clean and dry with pink tissue noted Wound redressed Wound care consult pending Patient requesting to go home and back to work. Will discuss plan with staff FRANCI BLEDSOE APRN Dec 21, 2019 08:45
[2019-12-21] MEDS ORDERED: DOXY100C2 PO (09:45)
[2019-12-21] MEDS ORDERED: ACET325T9 PO (09:46)
[2019-12-21] MEDS ORDERED: TRAM-48 PO (09:46)
[2019-12-21 11:00] VITALS: BP 158/78
--- NOTE | 2019-12-21 11:58 | NUR ---
SW following. Discussed with RN, pt discharging home today with self care. RN advised no SW needs.
[2019-12-21] MEDS: IV NORMAL SALINE 1000ML BAG 1,000 ML IV SCH (12:00)
--- NOTE | 2019-12-21 12:35 | NUR ---
wound care patient seen per wound care consult. see wound assessment. patient has a wound to the left great toe, the area was cleaned, measured, pictured and redressed with Xeroform gauze with gauze and tape, recommendations of changing every other day. educated patient on the dressing change. notified PAMELA Zamora about the POC. notified patient about f/u in the outpatient wound clinic- notified Khoa, Wound Disability Aide.
[2019-12-21 15:00] VITALS: BP 153/63
[2019-12-21] MEDS ORDERED: DOXYCYCLINE HYCLATE 100 MG TABLET PO ONE (17:30)
--- NOTE | 2019-12-21 17:42 | NUR ---
Pt discharged home with self care. Discharge instructions and prescriptions discussed. Doxycycline script called into [facility]. IV was removed. Half shoe was brought and placed on pt. All belongings were packed by pt. He was assissted into wheelchair and was taken to main entrance and secured in car with .
== END 2019-12-21 17:46 | disposition home or self-care (01) | DRG 580 ==
LOC: ER 13:48 → 4 NORTH 15:48
PROVIDERS: ADMIT Internal Medicine; ATTEND Internal Medicine
PROC: 0JDR0ZZ Extraction of Left Foot Subcutaneous Tissue and Fascia, Open Approach (ICD-10-PCS; principal; 2019-12-20 11:30)
DX: S91.102A Unspecified open wound of left great toe without damage to nail, initial encounter (principal); L03.116 Cellulitis of left lower limb; N17.9 Acute kidney failure, unspecified; G62.9 Polyneuropathy, unspecified; F10.10 Alcohol abuse, uncomplicated; I10 Essential (primary) hypertension; F41.9 Anxiety disorder, unspecified; F31.9 Bipolar disorder, unspecified; Y93.89 Activity, other specified; Y92.89 Other specified places as the place of occurrence of the external cause; Y99.8 Other external cause status; Z85.47 Personal history of malignant neoplasm of testis; Z88.5 Allergy status to narcotic agent; Z88.8 Allergy status to other drugs, medicaments and biological substances; Z90.79 Acquired absence of other genital organ(s); Z81.8 Family history of other mental and behavioral disorders; Z82.49 Family history of ischemic heart disease and other diseases of the circulatory system
CPT/HCPCS: 36415; 73630; 80053; 80202; 82565; 83605; 85025; 85651; 86140; 87040; 99285; A7015; J0171; J1100; J2001; J2405; J2543; J2704; J3010; J3370; J7030; J7040; J7050; A4461; G0378

== ENCOUNTER → 2020-10-13 | Outpatient (CLI) | payer OTHER ==
[~2020-10-13] MED LIST changes: +ACET325T9 PO; +DOXY100C2 PO; +ESZO2TAB21 PO; +GABA300C18 PO; +LAMO300T2 PO; +MIRT-34 PO; -MIRT30TA PO; +TRAM-48 PO
--- NOTE | 2020-10-14 08:06 | RAD ---
CT thoracic spine without contrast History: Back pain and testicular cancer Axial helical images of the thoracic spine were obtained without contrast. Axial, coronal and sagittal reconstruction was performed. Findings: The vertebral bodies are aligned. There is no loss of vertebral body stature. Evaluation of the central canal is limited without contrast. There is no evidence of significant central or neuroforaminal stenosis. There is chronic discogenic disease with loss of intervertebral disc height and vacuum changes. There is anterior flowing osteophytes. There is moderate narrowing of multiple neuroforamen below the level of the exiting nerve roots. Impression: No acute findings. End impression CT lumbar spine without contrast History: Back pain Axial helical images of the lumbar spine were obtained without contrast. Axial, coronal and sagittal reconstruction was performed. Findings: The vertebral bodies are aligned. There is moderate loss of stature of the L1 vertebral body due to impaction of superior endplate. Evaluation of the central canal is limited without contrast. There is loss of intervertebral disc material at all levels with diffuse disc osteophytic ridges and hypertrophy assessment flavum resulting in mild central stenosis at multiple levels. There is moderate narrowing of multiple neuroforamen below lower legs and nerve roots bilaterally. There is a 2.5 cm lesion arising from the upper pole left kidney with intermediate density. Impression: 1. Marked degenerative changes with multilevel central and neuroforaminal stenosis. 2. L1 vertebral body compression fracture likely old. 3. Indeterminate lesion arising from the upper pole left kidney. Patient should have a follow-up ultrasound. End impression PQRS Compliance Statement: One or more of the following individualized dose reduction techniques were utilized for this examination: 1. Automated exposure control 2. Adjustment of the mA and/or kV according to patient size 3. Use of iterative reconstruction technique Electronically signed by: Dusty Moe III, MD (10/14/2020 8:03 AM) [facility]
== END ==
LOC: CT 13:28
PROVIDERS: ATTEND Family Medicine
DX: M47.815 Spondylosis without myelopathy or radiculopathy, thoracolumbar region (principal); M48.05 Spinal stenosis, thoracolumbar region; N28.9 Disorder of kidney and ureter, unspecified
CPT/HCPCS: 72128; 72131

== ENCOUNTER → 2021-02-01 | Outpatient (CLI) | payer OTHER ==
--- NOTE | 2021-02-01 16:58 | RAD ---
INDICATION: Renal mass COMPARISON: Lumbar CT from October 2020 TECHNIQUE: Grayscale and color ultrasound images obtained of the bilateral kidneys and bladder. FINDINGS: Right Kidney: 94 mm. No hydronephrosis. Left Kidney: 126 mm. No hydronephrosis. 26 x 25 mm cyst Bladder: Prevoid 534 cc and postvoid 50 cc. Partially visualized liver is borderline echogenic. Mild fatty infiltration not excluded. IMPRESSION: * Exophytic lesion at the upper pole the left kidney corresponds to a simple appearing cyst. There i s however partial visualization of a possible second lesion on the recent CT which is not well charac terized on this ultrasound. May be helpful to obtain a follow-up CT or MRI renal protocol to assess. Electronically signed by: Ronal Mckinney MD (02/01/2021 4:56 PM) [id number]
== END ==
LOC: US 15:27
PROVIDERS: ATTEND Family Medicine
DX: N28.1 Cyst of kidney, acquired (principal); N28.9 Disorder of kidney and ureter, unspecified
CPT/HCPCS: 76770

== ENCOUNTER 2021-08-21 19:24 | Inpatient (IN) | payer SELFPAY ==
[~2021-08-21] VITALS: Ht 177.8 cm; Wt 82.6 kg
[~2021-08-21 19:24] MED LIST changes: -DOXY100C2 PO; +DOXY100C3 PO
[2021-08-21] MEDS ORDERED: diphenhydrAMINE 50 MG/ML VIAL ONE (19:45)
[2021-08-21] MEDS ORDERED: diphenhydrAMINE HCL 25 MG CAPSULE PO ONE (19:45)
[2021-08-21] MEDS ORDERED: OLANZapine IM 10 MG VIAL. IM ONE (19:47)
--- NOTE | 2021-08-21 20:21 | ED.ADGEN ---
Past Medical History Past Medical History: Anxiety, Bipolar, Depression, Hypertension, Other Additional Past Medical Histor: TESTICULAR CA Past Surgical History: Other Additional Past Surgical Histo: TESTICULAR SURGERY Smoking Status: Current Every Day Smoker Alcohol Use: Occasionally Drug Use: None General Adult EDM: Chief Complaint: SUICDAL IDEATION HPI: HPI: Patient is a 61 year old male brought in by EMS from his home after he called with suicidal ideations. Patient states he "wants to right now" but denies having a plan. Patient is agitated in room and per EMS was fidgety and trying to remove his seatbelts. Patient has a history of bipolar depression but states he has been compliant on his medications. Denies any drug or alcohol use. Patient lives with his who is disabled and cares for her. Patient is concerned about his . Patient is agitated but not combative. Occasionally cooperative answering questions. Patient is pacing around the room and scratching at the hubbard. He states that for the past few days he has not slept or eaten, but is been drinking about 2 gallons of water a day. He states that he has not urinated for the past 2 days but on ED arrival voided 800 mL of very dilute urine. States he also has a history of hypertension. He denies any suicide attempts or overdoses today. Denies any audio or visual hallucinations. Patient admitted to nurse that he had also had thoughts of harming his to "protect her from peers "there pending eviction" Review of Systems: Review of Systems: All other systems within normal limits except for as noted in the HPI Current Medications: Current Medications Medications (Trade) Dose Ordered Sig/Lis Start Time Stop Time Status Last Admin Dose Admin Diphenhydramine HCl (Benadryl) 50 mg STK-MED ONCE 08/21/21 19:45 08/21/21 19:46 DC Gabapentin (Neurontin) 300 mg TID 08/21/21 22:00 08/22/21 00:03 300 MG Lorazepam (Ativan Inj) 2 mg PRN Q4HRS PRN 08/21/21 21:45 08/22/21 04:38 2 MG Lorazepam (Ativan) 1 mg STK-MED ONCE 08/21/21 19:46 08/21/21 19:46 DC Mirtazapine (Remeron) 30 mg QHS 08/21/21 22:00 08/22/21 00:03 30 MG Olanzapine (ZyPREXA IM) 10 mg STK-MED ONCE 08/21/21 19:47 08/21/21 19:47 DC Olanzapine (ZyPREXA ZYDIS) 5 mg PRN BID PRN 08/21/21 21:45 08/22/21 00:12 5 MG Allergies: Allergies: Allergies Coded Allergies Type Severity Reaction Last Updated Verified codeine Allergy Intermediate 12/20/19 Yes cyclobenzaprine Allergy Intermediate 12/20/19 Yes tramadol Allergy Intermediate 12/20/19 Yes Physical Exam: PE: Constitutional: Well developed, well nourished, no acute distress, non-toxic appearance. [] HENT: Normocephalic, atraumatic, bilateral external ears normal, nose normal. [] Eyes: PERRLA, conjunctiva normal, no discharge. [] Neck: No rigidity, supple, no stridor. [] Cardiovascular: Regular rate and rhythm, brisk cap refill [] Lungs & Thorax: Non labored symmetric respirations, no tachypnea or respiratory distress [] Abdomen: Soft, nondistended. Skin: Warm, dry, no erythema, no rash. [] Back: Unremarkable Extremities: No deformities, range of motion grossly intact, no lower extremity edema [] Neurologic: Alert and oriented X 3, no focal deficits noted. [] Psychologic: Flat affect, pacing in room, suicidal thoughts, intermittently cooperative Current Patient Data: Labs: Laboratory Tests Test 08/21/21 19:30 08/21/21 20:17 Urine Collection Type Void Urine Color Yellow Urine Clarity Clear Urine pH 7.0 (<5.0-8.0) Urine Specific Sterling <=1.005 (1.000-1.030) Urine Protein Negative mg/dL (NEG-TRACE) Urine Glucose (UA) Negative mg/dL (NEG) Urine Ketones (Stick) Negative mg/dL (NEG) Urine Blood Negative (NEG) Urine Nitrite Negative (NEG) Urine Bilirubin Negative (NEG) Urine Urobilinogen Dipstick 0.2 mg/dL (0.2 mg/dL) Urine Leukocyte Esterase Negative (NEG) Urine RBC 0 /HPF (0-2) Urine WBC 0 /HPF (0-4) Urine Squamous Epithelial Cells Occ /LPF Urine Bacteria 0 /HPF (0-FEW) Urine Opiates Screen Neg (NEG) Urine Methadone Screen Neg (NEG) Urine Barbiturates Neg (NEG) Urine Phencyclidine Screen Neg (NEG) Urine Amphetamine/Methamphetamine Neg (NEG) Urine Benzodiazepines Screen Neg (NEG) Urine Cocaine Screen Neg (NEG) Urine Cannabinoids Screen Neg (NEG) Urine Ethyl Alcohol Neg (NEG) White Blood Count 10.5 x10^3/uL (4.0-11.0) Red Blood Count 4.17 x10^6/uL (4.30-5.70) L Hemoglobin 13.3 g/dL (13.0-17.5) Hematocrit 37.4 % (39.0-53.0) L Mean Corpuscular Volume 90 fL (79-100) Mean Corpuscular Hemoglobin 32 pg (25-35) Mean Corpuscular Hemoglobin Concent 36 g/dL (31-37) Red Cell Distribution Width 13.8 % (11.5-14.5) Platelet Count 181 x10^3/uL (140-400) Neutrophils (%) (Auto) 79 % (31-73) H Lymphocytes (%) (Auto) 12 % (24-48) L Monocytes (%) (Auto) 8 % (0-9) Eosinophils (%) (Auto) 0 % (0-3) Basophils (%) (Auto) 1 % (0-3) Neutrophils # (Auto) 8.3 x10^3/uL (1.8-7.7) H Lymphocytes # (Auto) 1.3 x10^3/uL (1.0-4.8) Monocytes # (Auto) 0.8 x10^3/uL (0.0-1.1) Eosinophils # (Auto) 0.0 x10^3/uL (0.0-0.7) Basophils # (Auto) 0.0 x10^3/uL (0.0-0.2) Sodium Level 116 mmol/L (136-145) *L Potassium Level 3.4 mmol/L (3.5-5.1) L Chloride Level 84 mmol/L (98-107) L Carbon Dioxide Level 24 mmol/L (21-32) Anion Gap 8 (6-14) Blood Urea Nitrogen 12 mg/dL (8-26) Creatinine 1.0 mg/dL (0.7-1.3) Estimated GFR (Cockcroft-Gault) 75.7 BUN/Creatinine Ratio 12 (6-20) Glucose Level 109 mg/dL (70-99) H Calcium Level 8.7 mg/dL (8.5-10.1) Phosphorus Level 2.5 mg/dL (2.6-4.7) L Magnesium Level 2.0 mg/dL (1.8-2.4) Total Bilirubin 0.8 mg/dL (0.2-1.0) Aspartate Amino Transferase (AST) 79 U/L (15-37) H Alanine Aminotransferase (ALT) 93 U/L (16-63) H Alkaline Phosphatase 87 U/L (46-116) WI-Syp-P-Type Natriuretic Peptide 96 pg/mL (0-124) Total Protein 7.6 g/dL (6.4-8.2) Albumin 4.2 g/dL (3.4-5.0) Albumin/Globulin Ratio 1.2 (1.0-1.7) Thyroid Stimulating Hormone (TSH) 0.381 uIU/mL (0.358-3.74) Salicylates Level < 2.8 mg/dL (2.8-20.0) L Salicylate Last Dose Date Unk Salicylate Last Dose Time Unk Acetaminophen Level < 2.0 mcg/ml (10-30) L Acetaminophen Last Dose Date Unk Acetaminophen Last Dose Time Unk Ethyl Alcohol Level < 10 mg/dL (0-10) Laboratory Tests 08/21/21 20:17 Laboratory Tests 08/21/21 20:17 Vital Signs: Vital Signs Date Time Temp Pulse Resp B/P (MAP) Pulse Ox O2 Delivery O2 Flow Rate FiO2 08/21/21 22:00 78 18 120/58 (78) 99 Room Air 08/21/21 20:22 97.2 97.2 EKG: EKG: [] Heart Score: C/O Chest Pain: No Risk Factors: Risk Factors: DM, Current or recent (<one month) smoker, HTN, HLP, family history of CAD, obesity. Risk Scores: Score 0 - 3: 2.5% MACE over next 6 weeks - Discharge Home Score 4 - 6: 20.3% MACE over next 6 weeks - Admit for Clinical Observation Score 7 - 10: 72.7% MACE over next 6 weeks - Early Invasive Strategies Radiology/Procedures: Radiology/Procedures: [facility] [address] [place] [address] IMAGING REPORT Signed PATIENT: MELVINA GUSMAN ACCOUNT: [id number] : 1960 LOCATION: ER AGE: 61 SEX: M EXAM STATUS: REG ER ORD. PHYSICIAN: FELICIANO MOORE MD REASON: ams PROCEDURE: CT HEAD WO CONTRAST Exam: CT head INDICATION: Altered mental status TECHNIQUE: Sequential axial images through the head were obtained without the administration of IV contrast. Exposure: One or more of the following in the visualized dose reduction techniques were utilized for this examination: 1. Automated exposure control 2. Adjustment of the MA and/or KV according to patient size 3. Use of iterative of reconstructive technique Comparisons: None FINDINGS: No focal parenchymal lesion or hemorrhage is identified. There is no midline shift or sulcal effacement. Patchy hypodensity in the periventricular white matter. No acute vascular territory infarction is identified. Alegria-white distinction is preserved. The ventricular system is within normal limits without compression hydrocephalus. The basal cisterns are well maintained. The visualized portions of the paranasal sinuses and mastoid air cells are well- pneumatized. No acute fractures. IMPRESSION: Moderate small vessel ischemic change, technically age indeterminate without recent prior imaging. Electronically signed by: Andree Sosa MD (08/21/2021 10:48 PM) [facility] DICTATED and SIGNED BY: ANDREE SOSA MD DATE: 08/21/21 [id number] [] Course & Med Decision Making: Course & Med Decision Making Pertinent Labs and Imaging studies reviewed. (See chart for details) Patient unable to medically clear due to hyponatremia. Likely due to his excessive water intake. Discussed with hospitalist and will admit for h yponatremia and treat with water restriction. Patient more cooperative after olanzapine, Benadryl, and Ativan. Pending PAT evaluation. Patient placed on one-to-one status for homicidal and suicidal ideations. [] Dragon Disclaimer: Dragon Disclaimer: This electronic medical record was generated, in whole or in part, using a voice recognition dictation system. Departure Departure Impression: Primary Impression: Hyponatremia Additional Impressions: Psychosis Homicidal ideation Suicidal ideation Disposition: ADMITTED INPATIENT Admitting Physician: TOPHER Condition: GUARDED Referrals: NON,STAFF (PCP) Problem Qualifiers FELICIANO MOORE MD Aug 21, 2021 20:21
[2021-08-21 20:29] LABS: BILIRUBIN,URINE NEGATIVE (NEG); CLARITY,URINE CLEAR; COLOR,URINE YELLOW; NITRITE,URINE NEGATIVE (NEG); PROTEIN,URINE NEGATIVE (NEG-TRACE); UROBILINOGEN,URINE 0.2 mg/dL (0.2 mg/dL)
[2021-08-21 20:30] LABS: BASO % 1 % (0-3); EOS % 0 % (0-3); HEMATOCRIT 37.4 % (39.0-53.0); HEMOGLOBIN 13.3 g/dL (13.0-17.5); LYMPH # 1.3 x10^3/uL (1.0-4.8); LYMPH % 12 % (24-48); MEAN CORPUSCULAR HEMOGLOBIN 32 pg (25-35); MEAN CORPUSCULAR HGB CONC 36 g/dL (31-37); MEAN CORPUSCULAR VOLUME 90 fL (79-100); MONO # 0.8 x10^3/uL (0.0-1.1); MONO % 8 % (0-9); NEUT # 8.3 x10^3/uL (1.8-7.7); NEUT % 79 % (31-73); PLATELET COUNT 181 x10^3/uL (140-400); RED BLOOD COUNT 4.17 x10^6/uL (4.30-5.70); RED CELL DISTRIBUTION WIDTH 13.8 % (11.5-14.5); WHITE BLOOD COUNT 10.5 x10^3/uL (4.0-11.0)
[2021-08-21 20:34] LABS: BACTERIA,URINE 0 /HPF (0-FEW); BARBITURATES NEG (NEG); BENZODIAZEPINES NEG (NEG); CANNABINOIDS NEG (NEG); COCAINE NEG (NEG); METHADONE NEG (NEG); OPIATES NEG (NEG); PHENCYCLIDINE NEG (NEG); RBC,URINE 0 /HPF (0-2); WBC,URINE 0 /HPF (0-4)
[2021-08-21 20:35] LABS: AMPHETAMINE/METHAMPHETAMINE NEG (NEG)
[2021-08-21 20:41] LABS: ETHANOL < 10 mg/dL (0-10); SALIC < 2.8 mg/dL (2.8-20.0)
[2021-08-21 20:42] LABS: ACETAMIN < 2.0 mcg/ml (10-30)
[2021-08-21 20:44] LABS: ALBUMIN 4.2 g/dL (3.4-5.0); ALBUMIN/GLOBULIN RATIO 1.2 (1.0-1.7); CALCIUM 8.7 mg/dL (8.5-10.1); GFR 75.7; PHOSPHORUS 2.5 mg/dL (2.6-4.7); POTASSIUM 3.4 mmol/L (3.5-5.1); TOTAL BILIRUBIN 0.8 mg/dL (0.2-1.0); TOTAL PROTEIN 7.6 g/dL (6.4-8.2)
[2021-08-21] MEDS ORDERED: MIRTAZAPINE 15 MG TABLET PO SCH (22:00)
--- NOTE | 2021-08-21 22:51 | RAD ---
Exam: CT head INDICATION: Altered mental status TECHNIQUE: Sequential axial images through the head were obtained without the administration of IV co ntrast. Exposure: One or more of the following in the visualized dose reduction techniques were utilized for this examination: 1. Automated exposure control 2. Adjustment of the MA and/or KV according to patient size 3. Use of iterative of reconstructive technique Comparisons: None FINDINGS: No focal parenchymal lesion or hemorrhage is identified. There is no midline shift or sulcal effaceme nt. Patchy hypodensity in the periventricular white matter. No acute vascular territory infarction is patricia ntified. Alegria-white distinction is preserved. The ventricular system is within normal limits without compression hydrocephalus. The basal cisterns are well maintained. The visualized portions of the paranasal sinuses and mastoid air cells are well-pneumatized. No acute fractures. IMPRESSION: Moderate small vessel ischemic change, technically age indeterminate without recent prior imaging. Electronically signed by: Andree Campos MD (08/21/2021 10:48 PM) [facility]
[2021-08-22] MEDS ORDERED: OLANZapine 5 MG TABLET PO ONE
[2021-08-22] MEDS ORDERED: diphenhydrAMINE HCL 25 MG CAPSULE PO ONE
[2021-08-22] MEDS: GABAPENTIN 300 MG CAPSULE. PO SCH ×3 (00:03→14:28)
[2021-08-22 01:14] VITALS: BP 133/70
[2021-08-22 01:15] VITALS: BP 133/70
[2021-08-22 03:11] VITALS: BP 129/76
[2021-08-22] MEDS ORDERED: LISINOPRIL 20 MG TABLET PO SCH (09:00)
[2021-08-22] MEDS ORDERED: lamoTRIgine 100 MG TABLET. PO SCH (09:00)
[2021-08-22 09:15] VITALS: BP 124/79
--- NOTE | 2021-08-22 09:40 | PDOC1 ---
History and Physical Date of Admission Date of Admission DATE: 08/22/21 TIME: 09:24 Identification/Chief Complaint Chief Complaint SI Source Source: Patient History of Present Illness History of Present Illness Patient 61-year-old male with past medical history bipolar disorder, who presents to the ED with complaints of suicidal ideation. Per EMS report, was very agitated appearing and did state that he "wants to right now". He denies any plan; he denies any prior history of suicidal attempt. Lives at home with his who is disabled and acts as primary memory care program resident. He has been recently dealing with a lot of social issues, including possible eviction, that has "pushed him over the edge". He has not been able to eat or sleep much over the past few days. He states he has been drinking 3 gallons of water daily for the past 3 weeks. He was able to tolerate a sandwich last night, and states that his appetite is improved this morning. He received a dose of Ativan this morning with improvement in his symptoms. He does admit to history of regular alcohol use, 3 beers daily, but denies any history of alcohol withdrawal or alcohol withdrawal seizures. He currently denies any suicidal ideation or homicidal ideation. He has been followed by [facility] services for the past 3 years and has been receiving mental health therapy and medications through them as well. He denies any visual or auditory hallucinations. Patient for further medical management. Past Medical History Cardiovascular: HTN Psych: Anxiety, Bipolar, Depression Past Surgical History Past Surgical History: Cholecystectomy Family History Family History: Depression, Hypertension Social History Smoke: No ALCOHOL: heavy Drugs: None Current Problem List Problem List Problems Medical Problems: (1) Homicidal ideation Status: Acute (2) Hyponatremia Status: Acute (3) Psychosis Status: Acute (4) Suicidal ideation Status: Acute Current Medications Current Medications Current Medications Diphenhydramine HCl (Benadryl) 25 mg STK-MED ONCE PO ; Start 08/21/21 at 19:45; Stop 08/21/21 at 19:46; Status DC Diphenhydramine HCl (Benadryl) 50 mg STK-MED ONCE .ROUTE ; Start 08/21/21 at 19:45; Stop 08/21/21 at 19:46; Status DC Lorazepam (Ativan) 1 mg STK-MED ONCE .ROUTE ; Start 08/21/21 at 19:46; Stop at 19:46; Status DC Lorazepam (Ativan Inj) 2 mg STK-MED ONCE .ROUTE ; Start 08/21/21 at 19:46; Stop 08/21/21 at 19:46; Status DC Olanzapine (ZyPREXA ZYDIS) 5 mg STK-MED ONCE .ROUTE ; Start 08/21/21 at 19:47; Stop 08/21/21 at 19:47; Status DC Olanzapine (ZyPREXA IM) 10 mg STK-MED ONCE IM ; Start 08/21/21 at 19:47; Stop 08/21/21 at 19:47; Status DC Olanzapine (ZyPREXA ZYDIS) 5 mg STK-MED ONCE .ROUTE ; Start 08/21/21 at 21:11; Stop 08/21/21 at 21:11; Status DC Amlodipine Besylate (Norvasc) 10 mg DAILY08 PO Last administered on 08/22/21at 09:20; Start 08/22/21 at 08:00 Gabapentin (Neurontin) 300 mg TID PO Last administered on 08/22/21at 09:19; Start 08/21/21 at 22:00 Lisinopril (Prinivil) 40 mg DAILY PO Last administered on 08/22/21at 09:19; Start 08/22/21 at 09:00 Lamotrigine (LaMICtal) 300 mg DAILY PO Last administered on 08/22/21at 09:19; Start 08/22/21 at 09:00 Mirtazapine (Remeron) 30 mg QHS PO Last administered on 08/22/21at 00:03; Start 08/21/21 at 22:00 Olanzapine (ZyPREXA ZYDIS) 5 mg PRN BID PRN PO ANXIETY / AGITATION Last administered on 08/22/21at 09:20; Start 08/21/21 at 21:45 Lorazepam (Ativan Inj) 2 mg PRN Q4HRS PRN IVP ANXIETY / AGITATION Last administered on 08/22/21at 04:38; Start 08/21/21 at 21:45 Lorazepam (Ativan) 1 mg 1X ONCE PO Last administered on 08/21/21at 19:47; Start 08/22/21 at 00:00; Stop 10/13/21 at 00:01; Status DC Diphenhydramine HCl (Benadryl) 50 mg 1X ONCE PO Last administered on 08/21/21at 19:46; Start 08/22/21 at 00:00; Stop 08/22/21 at 00:01; Status DC Olanzapine (ZyPREXA) 10 mg 1X ONCE PO Last administered on 08/21/21at 19:48; Start 08/22/21 at 00:00; Stop 08/21/21 at 23:59; Status DC Olanzapine (ZyPREXA ZYDIS) 10 mg 1X ONCE PO ; Start 08/22/21 at 00:00; Stop 08/22/21 at 00:01; Status DC Active Scripts Active Tylenol (Acetaminophen) 325 Mg Tablet 2 Tab PO QID PRN Ultram (Tramadol Hcl) 50 Mg Tablet 1 Tab PO PRN TID PRN MDD 3 Tablet(s) Doxycycline Hyclate 100 Mg Capsule 1 Cap PO BID Reported Gabapentin (Gabapentin) 300 Mg Capsule 300 Mg PO TID Lunesta (Eszopiclone) 2 Mg Tablet 2 Mg PO HS Lamotrigine 300 Mg Tab.er.24 200 Mg PO BID Lisinopril 40 Mg Tablet 40 Mg PO DAILY Norvasc (Amlodipine Besylate) 10 Mg Tablet 10 Mg PO DAILY08 Remeron (Mirtazapine) 30 Mg Tablet 30 Mg PO QHS Allergies Allergies: Coded Allergies: codeine (Verified Allergy, Intermediate, 12/20/19) cyclobenzaprine (Verified Allergy, Intermediate, 12/20/19) tramadol (Verified Allergy, Intermediate, 12/20/19) ROS Review of System GENERAL: No history of weight change, weakness or fevers. SKIN: No bruising, hair changes or rashes. EYES: No blurred, double or loss of vision. NOSE AND THROAT: No history of nosebleeds, hoarseness or sore throat. HEART: Denies chest pain, denies palpitations. LUNGS: Denies cough, hemoptysis, wheezing or shortness of breath. GASTROINTESTINAL: Denies nausea, vomiting, abdominal pain. GENITOURINARY: Denies dysuria, frequency, urgency, hematuria. NEUROLOGIC: Denies history of numbness, tingling, tremor or weakness. PSYCHIATRIC: Anxiety, depression, SI. Denies HI. ENDOCRINE: No history of heat or cold intolerance, polyuria or polydipsia. EXTREMITIES: Denies muscle weakness, joint pain, pain on walking or stiffness. Physical Exam Physical Exam General: Alert, Oriented X3, Cooperative, No acute distress HEENT: PERRLA, EOMI Lungs: Clear to auscultation, Normal air movement Heart: RRR, no murmurs Cardiovascular: S1, S2 Abdomen: Normal bowel sounds, Soft, No tenderness Extremities: No clubbing, No cyanosis Skin: No rashes, No significant lesion Neuro: Normal speech, Normal tone, Sensation intact Psych/Mental Status: Mental status NL, Mood NL Vitals Vitals Vital Signs Date Time Temp Pulse Resp B/P (MAP) Pulse Ox O2 Delivery O2 Flow Rate FiO2 08/22/21 09:20 73 124/79 08/22/21 09:15 98.4 18 96 Room Air 98.4 Labs Labs Laboratory Tests Test 08/21/21 19:30 08/21/21 20:17 Urine Collection Type Void Urine Color Yellow Urine Clarity Clear Urine pH 7.0 (<5.0-8.0) Urine Specific [place] <=1.005 (1.000-1.030) Urine Protein Negative mg/dL (NEG-TRACE) Urine Glucose (UA) Negative mg/dL (NEG) Urine Ketones (Stick) Negative mg/dL (NEG) Urine Blood Negative (NEG) Urine Nitrite Negative (NEG) Urine Bilirubin Negative (NEG) Urine Urobilinogen Dipstick 0.2 mg/dL (0.2 mg/dL) Urine Leukocyte Esterase Negative (NEG) Urine RBC 0 /HPF (0-2) Urine WBC 0 /HPF (0-4) Urine Squamous Epithelial Cells Occ /LPF Urine Bacteria 0 /HPF (0-FEW) Urine Opiates Screen Neg (NEG) Urine Methadone Screen Neg (NEG) Urine Barbiturates Neg (NEG) Urine Phencyclidine Screen Neg (NEG) Urine Amphetamine/Methamphetamine Neg (NEG) Urine Benzodiazepines Screen Neg (NEG) Urine Cocaine Screen Neg (NEG) Urine Cannabinoids Screen Neg (NEG) Urine Ethyl Alcohol Neg (NEG) White Blood Count 10.5 x10^3/uL (4.0-11.0) Red Blood Count 4.17 x10^6/uL (4.30-5.70) Hemoglobin 13.3 g/dL (13.0-17.5) Hematocrit 37.4 % (39.0-53.0) Mean Corpuscular Volume 90 fL (79-100) Mean Corpuscular Hemoglobin 32 pg (25-35) Mean Corpuscular Hemoglobin Concent 36 g/dL (31-37) Red Cell Distribution Width 13.8 % (11.5-14.5) Platelet Count 181 x10^3/uL (140-400) Neutrophils (%) (Auto) 79 % (31-73) Lymphocytes (%) (Auto) 12 % (24-48) Monocytes (%) (Auto) 8 % (0-9) Eosinophils (%) (Auto) 0 % (0-3) Basophils (%) (Auto) 1 % (0-3) Neutrophils # (Auto) 8.3 x10^3/uL (1.8-7.7) Lymphocytes # (Auto) 1.3 x10^3/uL (1.0-4.8) Monocytes # (Auto) 0.8 x10^3/uL (0.0-1.1) Eosinophils # (Auto) 0.0 x10^3/uL (0.0-0.7) Basophils # (Auto) 0.0 x10^3/uL (0.0-0.2) Sodium Level 116 mmol/L (136-145) Potassium Level 3.4 mmol/L (3.5-5.1) Chloride Level 84 mmol/L (98-107) Carbon Dioxide Level 24 mmol/L (21-32) Anion Gap 8 (6-14) Blood Urea Nitrogen 12 mg/dL (8-26) Creatinine 1.0 mg/dL (0.7-1.3) Estimated GFR (Cockcroft-Gault) 75.7 BUN/Creatinine Ratio 12 (6-20) Glucose Level 109 mg/dL (70-99) Calcium Level 8.7 mg/dL (8.5-10.1) Phosphorus Level 2.5 mg/dL (2.6-4.7) Magnesium Level 2.0 mg/dL (1.8-2.4) Total Bilirubin 0.8 mg/dL (0.2-1.0) Aspartate Amino Transf (AST/SGOT) 79 U/L (15-37) Alanine Aminotransferase (ALT/SGPT) 93 U/L (16-63) Alkaline Phosphatase 87 U/L (46-116) ZD-Zpl-F-Type Natriuretic Peptide 96 pg/mL (0-124) Total Protein 7.6 g/dL (6.4-8.2) Albumin 4.2 g/dL (3.4-5.0) Albumin/Globulin Ratio 1.2 (1.0-1.7) Thyroid Stimulating Hormone (TSH) 0.381 uIU/mL (0.358-3.74) Salicylates Level < 2.8 mg/dL (2.8-20.0) Salicylate Last Dose Date Unk Salicylate Last Dose Time Unk Acetaminophen Level < 2.0 mcg/ml (10-30) Acetaminophen Last Dose Date Unk Acetaminophen Last Dose Time Unk Ethyl Alcohol Level < 10 mg/dL (0-10) Laboratory Tests Test 08/21/21 19:30 08/21/21 20:17 Urine Collection Type Void Urine Color Yellow Urine Clarity Clear Urine pH 7.0 (<5.0-8.0) Urine Specific Chauncey <=1.005 (1.000-1.030) Urine Protein Negative mg/dL (NEG-TRACE) Urine Glucose (UA) Negative mg/dL (NEG) Urine Ketones (Stick) Negative mg/dL (NEG) Urine Blood Negative (NEG) Urine Nitrite Negative (NEG) Urine Bilirubin Negative (NEG) Urine Urobilinogen Dipstick 0.2 mg/dL (0.2 mg/dL) Urine Leukocyte Esterase Negative (NEG) Urine RBC 0 /HPF (0-2) Urine WBC 0 /HPF (0-4) Urine Squamous Epithelial Cells Occ /LPF Urine Bacteria 0 /HPF (0-FEW) Urine Opiates Screen Neg (NEG) Urine Methadone Screen Neg (NEG) Urine Barbiturates Neg (NEG) Urine Phencyclidine Screen Neg (NEG) Urine Amphetamine/Methamphetamine Neg (NEG) Urine Benzodiazepines Screen Neg (NEG) Urine Cocaine Screen Neg (NEG) Urine Cannabinoids Screen Neg (NEG) Urine Ethyl Alcohol Neg (NEG) White Blood Count 10.5 x10^3/uL (4.0-11.0) Red Blood Count 4.17 x10^6/uL (4.30-5.70) Hemoglobin 13.3 g/dL (13.0-17.5) Hematocrit 37.4 % (39.0-53.0) Mean Corpuscular Volume 90 fL (79-100) Mean Corpuscular Hemoglobin 32 pg (25-35) Mean Corpuscular Hemoglobin Concent 36 g/dL (31-37) Red Cell Distribution Width 13.8 % (11.5-14.5) Platelet Count 181 x10^3/uL (140-400) Neutrophils (%) (Auto) 79 % (31-73) Lymphocytes (%) (Auto) 12 % (24-48) Monocytes (%) (Auto) 8 % (0-9) Eosinophils (%) (Auto) 0 % (0-3) Basophils (%) (Auto) 1 % (0-3) Neutrophils # (Auto) 8.3 x10^3/uL (1.8-7.7) Lymphocytes # (Auto) 1.3 x10^3/uL (1.0-4.8) Monocytes # (Auto) 0.8 x10^3/uL (0.0-1.1) Eosinophils # (Auto) 0.0 x10^3/uL (0.0-0.7) Basophils # (Auto) 0.0 x10^3/uL (0.0-0.2) Sodium Level 116 mmol/L (136-145) Potassium Level 3.4 mmol/L (3.5-5.1) Chloride Level 84 mmol/L (98-107) Carbon Dioxide Level 24 mmol/L (21-32) Anion Gap 8 (6-14) Blood Urea Nitrogen 12 mg/dL (8-26) Creatinine 1.0 mg/dL (0.7-1.3) Estimated GFR (Cockcroft-Gault) 75.7 BUN/Creatinine Ratio 12 (6-20) Glucose Level 109 mg/dL (70-99) Calcium Level 8.7 mg/dL (8.5-10.1) Phosphorus Level 2.5 mg/dL (2.6-4.7) Magnesium Level 2.0 mg/dL (1.8-2.4) Total Bilirubin 0.8 mg/dL (0.2-1.0) Aspartate Amino Transf (AST/SGOT) 79 U/L (15-37) Alanine Aminotransferase (ALT/SGPT) 93 U/L (16-63) Alkaline Phosphatase 87 U/L (46-116) MJ-Euz-I-Type Natriuretic Peptide 96 pg/mL (0-124) Total Protein 7.6 g/dL (6.4-8.2) Albumin 4.2 g/dL (3.4-5.0) Albumin/Globulin Ratio 1.2 (1.0-1.7) Thyroid Stimulating Hormone (TSH) 0.381 uIU/mL (0.358-3.74) Salicylates Level < 2.8 mg/dL (2.8-20.0) Salicylate Last Dose Date Unk Salicylate Last Dose Time Unk Acetaminophen Level < 2.0 mcg/ml (10-30) Acetaminophen Last Dose Date Unk Acetaminophen Last Dose Time Unk Ethyl Alcohol Level < 10 mg/dL (0-10) Images Images PATIENT: MELVINA GALVAN ACCOUNT: [id number] : 1960 LOCATION: ER AGE: 61 SEX: M EXAM STATUS: REG ER ORD. PHYSICIAN: FELICIANO MOORE MD REASON: ams PROCEDURE: CT HEAD WO CONTRAST Exam: CT head INDICATION: Altered mental status TECHNIQUE: Sequential axial images through the head were obtained without the administration of IV contrast. Exposure: One or more of the following in the visualized dose reduction techniques were utilized for this examination: 1. Automated exposure control 2. Adjustment of the MA and/or KV according to patient size 3. Use of iterative of reconstructive technique Comparisons: None FINDINGS: No focal parenchymal lesion or hemorrhage is identified. There is no midline shift or sulcal effacement. Patchy hypodensity in the periventricular white matter. No acute vascular territory infarction is identified. Alegria-white distinction is preserved. The ventricular system is within normal limits without compression hydrocephalus. The basal cisterns are well maintained. The visualized portions of the paranasal sinuses and mastoid air cells are well- pneumatized. No acute fractures. IMPRESSION: Moderate small vessel ischemic change, technically age indeterminate without recent prior imaging. VTE Prophylaxis Ordered VTE Prophylaxis Devices: Yes VTE Pharmacological Prophylaxi: No Assessment/Plan Assessment/Plan Hyponatremia Acute stress disorder SI Bipolar disorder HTN Plan: Consultation placed to PAT team 1:1 suicide watch until cleared by PAT team Ativan as needed Hyponatremia secondary to excessive water intake; discussed with patient to limit water intake to 2 L daily Resume home medications FEN - Cardiac diet PPX - SCDs FULL CODE Dispo - inpatient for above Surrogate decision-maker is his (Daisy Galvan) Justifications for Admission Other Justification ROSA MARIA KOVACS MD Aug 22, 2021 09:40
[2021-08-22] MEDS ORDERED: MAGNESIUM HYDROXIDE 2,400 MG/30 ML ORAL.SUSP. PO PRN (09:45)
[2021-08-22] MEDS ORDERED: HYDROcodone/APAP 5/325MG 1 TAB TABLET PO PRN (09:45)
[2021-08-22] MEDS ORDERED: ACETAMINOPHEN 325 MG TABLET. PO PRN (09:45)
[2021-08-22] MEDS ORDERED: CALCIUM CARBONATE 500 MG TAB.CHEW PO PRN (09:45)
[2021-08-22] MEDS ORDERED: ONDANSETRON PF 4 MG/2 ML VIAL. IVP PRN (09:45)
[2021-08-22] MEDS ORDERED: MAG HYDROX/ALUMINUM HYD/SIMETH 30 ML ORAL.SUSP PO PRN (09:45)
[2021-08-22] MEDS ORDERED: hydrALAZINE 20 MG/ML VIAL. IVP PRN (10:00)
[2021-08-22 11:39] VITALS: BP 118/76
[2021-08-22 12:02] LABS: CALCIUM 8.9 mg/dL (8.5-10.1); CREATININE 1.1 mg/dL (0.7-1.3); GFR 67.8; POTASSIUM 4.1 mmol/L (3.5-5.1)
--- NOTE | 2021-08-22 14:35 | NUR ---
SS following for discharge planning. SS reviewed pt chart and discussed with pt RN. Pt is from home with spouse and is currently on room air. 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 Pt is currently on room air. Hyponatremia on admission. 1:1 for possible concerns with SI and HI. PAT team referral made for assessment. Jarrett from PAT team met with pt and assessed. No SI or HI at this time. Pt is open at [facility] and has Policy Manager, therapy services, and medication services. Pt is being evicted and [facility] assisting with housing services. Pt cleared by PAT team. 1:1 being discontinued. Anticipate discharge to home later today.
--- NOTE | 2021-08-22 14:36 | PDOC3 ---
Discharge Summary Visit Information Date of Admission: Aug 22, 2021 Date of Discharge: Aug 22, 2021 Final Diagnosis Problems Medical Problems: (1) Homicidal ideation Status: Acute (2) Hyponatremia Status: Acute (3) Psychosis Status: Acute (4) Suicidal ideation Status: Acute Brief Hospital Course Allergies Allergies Coded Allergies Type Severity Reaction Last Updated Verified codeine Allergy Intermediate 12/20/19 Yes cyclobenzaprine Allergy Intermediate 12/20/19 Yes tramadol Allergy Intermediate 12/20/19 Yes Vital Signs Vital Signs Date Time Temp Pulse Resp B/P (MAP) Pulse Ox O2 Delivery O2 Flow Rate FiO2 08/22/21 11:39 97.7 77 20 118/76 (90) 99 Room Air 97.7 Lab Results Laboratory Tests Test 08/21/21 19:30 08/21/21 20:17 08/22/21 11:30 Urine Collection Type Void Urine Color Yellow Urine Clarity Clear Urine pH 7.0 (<5.0-8.0) Urine Specific Maryneal <=1.005 (1.000-1.030) Urine Protein Negative mg/dL (NEG-TRACE) Urine Glucose (UA) Negative mg/dL (NEG) Urine Ketones (Stick) Negative mg/dL (NEG) Urine Blood Negative (NEG) Urine Nitrite Negative (NEG) Urine Bilirubin Negative (NEG) Urine Urobilinogen Dipstick 0.2 mg/dL (0.2 mg/dL) Urine Leukocyte Esterase Negative (NEG) Urine RBC 0 /HPF (0-2) Urine WBC 0 /HPF (0-4) Urine Squamous Epithelial Cells Occ /LPF Urine Bacteria 0 /HPF (0-FEW) Urine Opiates Screen Neg (NEG) Urine Methadone Screen Neg (NEG) Urine Barbiturates Neg (NEG) Urine Phencyclidine Screen Neg (NEG) Urine Amphetamine/Methamphetamine Neg (NEG) Urine Benzodiazepines Screen Neg (NEG) Urine Cocaine Screen Neg (NEG) Urine Cannabinoids Screen Neg (NEG) Urine Ethyl Alcohol Neg (NEG) White Blood Count 10.5 x10^3/uL (4.0-11.0) Red Blood Count 4.17 x10^6/uL (4.30-5.70) Hemoglobin 13.3 g/dL (13.0-17.5) Hematocrit 37.4 % (39.0-53.0) Mean Corpuscular Volume 90 fL (79-100) Mean Corpuscular Hemoglobin 32 pg (25-35) Mean Corpuscular Hemoglobin Concent 36 g/dL (31-37) Red Cell Distribution Width 13.8 % (11.5-14.5) Platelet Count 181 x10^3/uL (140-400) Neutrophils (%) (Auto) 79 % (31-73) Lymphocytes (%) (Auto) 12 % (24-48) Monocytes (%) (Auto) 8 % (0-9) Eosinophils (%) (Auto) 0 % (0-3) Basophils (%) (Auto) 1 % (0-3) Neutrophils # (Auto) 8.3 x10^3/uL (1.8-7.7) Lymphocytes # (Auto) 1.3 x10^3/uL (1.0-4.8) Monocytes # (Auto) 0.8 x10^3/uL (0.0-1.1) Eosinophils # (Auto) 0.0 x10^3/uL (0.0-0.7) Basophils # (Auto) 0.0 x10^3/uL (0.0-0.2) Sodium Level 116 mmol/L (136-145) 135 mmol/L (136-145) Potassium Level 3.4 mmol/L (3.5-5.1) 4.1 mmol/L (3.5-5.1) Chloride Level 84 mmol/L (98-107) 100 mmol/L (98-107) Carbon Dioxide Level 24 mmol/L (21-32) 28 mmol/L (21-32) Anion Gap 8 (6-14) 7 (6-14) Blood Urea Nitrogen 12 mg/dL (8-26) 11 mg/dL (8-26) Creatinine 1.0 mg/dL (0.7-1.3) 1.1 mg/dL (0.7-1.3) Estimated GFR (Cockcroft-Gault) 75.7 67.8 BUN/Creatinine Ratio 12 (6-20) Glucose Level 109 mg/dL (70-99) 101 mg/dL (70-99) Calcium Level 8.7 mg/dL (8.5-10.1) 8.9 mg/dL (8.5-10.1) Phosphorus Level 2.5 mg/dL (2.6-4.7) Magnesium Level 2.0 mg/dL (1.8-2.4) Total Bilirubin 0.8 mg/dL (0.2-1.0) Aspartate Amino Transf (AST/SGOT) 79 U/L (15-37) Alanine Aminotransferase (ALT/SGPT) 93 U/L (16-63) Alkaline Phosphatase 87 U/L (46-116) EQ-Pxc-M-Type Natriuretic Peptide 96 pg/mL (0-124) Total Protein 7.6 g/dL (6.4-8.2) Albumin 4.2 g/dL (3.4-5.0) Albumin/Globulin Ratio 1.2 (1.0-1.7) Thyroid Stimulating Hormone (TSH) 0.381 uIU/mL (0.358-3.74) Salicylates Level < 2.8 mg/dL (2.8-20.0) Salicylate Last Dose Date Unk Salicylate Last Dose Time Unk Acetaminophen Level < 2.0 mcg/ml (10-30) Acetaminophen Last Dose Date Unk Acetaminophen Last Dose Time Unk Ethyl Alcohol Level < 10 mg/dL (0-10) Laboratory Tests Test 08/21/21 19:30 08/21/21 20:17 08/22/21 11:30 Urine Collection Type Void Urine Color Yellow Urine Clarity Clear Urine pH 7.0 (<5.0-8.0) Urine Specific Maryneal <=1.005 (1.000-1.030) Urine Protein Negative mg/dL (NEG-TRACE) Urine Glucose (UA) Negative mg/dL (NEG) Urine Ketones (Stick) Negative mg/dL (NEG) Urine Blood Negative (NEG) Urine Nitrite Negative (NEG) Urine Bilirubin Negative (NEG) Urine Urobilinogen Dipstick 0.2 mg/dL (0.2 mg/dL) Urine Leukocyte Esterase Negative (NEG) Urine RBC 0 /HPF (0-2) Urine WBC 0 /HPF (0-4) Urine Squamous Epithelial Cells Occ /LPF Urine Bacteria 0 /HPF (0-FEW) Urine Opiates Screen Neg (NEG) Urine Methadone Screen Neg (NEG) Urine Barbiturates Neg (NEG) Urine Phencyclidine Screen Neg (NEG) Urine Amphetamine/Methamphetamine Neg (NEG) Urine Benzodiazepines Screen Neg (NEG) Urine Cocaine Screen Neg (NEG) Urine Cannabinoids Screen Neg (NEG) Urine Ethyl Alcohol Neg (NEG) White Blood Count 10.5 x10^3/uL (4.0-11.0) Red Blood Count 4.17 x10^6/uL (4.30-5.70) Hemoglobin 13.3 g/dL (13.0-17.5) Hematocrit 37.4 % (39.0-53.0) Mean Corpuscular Volume 90 fL (79-100) Mean Corpuscular Hemoglobin 32 pg (25-35) Mean Corpuscular Hemoglobin Concent 36 g/dL (31-37) Red Cell Distribution Width 13.8 % (11.5-14.5) Platelet Count 181 x10^3/uL (140-400) Neutrophils (%) (Auto) 79 % (31-73) Lymphocytes (%) (Auto) 12 % (24-48) Monocytes (%) (Auto) 8 % (0-9) Eosinophils (%) (Auto) 0 % (0-3) Basophils (%) (Auto) 1 % (0-3) Neutrophils # (Auto) 8.3 x10^3/uL (1.8-7.7) Lymphocytes # (Auto) 1.3 x10^3/uL (1.0-4.8) Monocytes # (Auto) 0.8 x10^3/uL (0.0-1.1) Eosinophils # (Auto) 0.0 x10^3/uL (0.0-0.7) Basophils # (Auto) 0.0 x10^3/uL (0.0-0.2) Sodium Level 116 mmol/L (136-145) 135 mmol/L (136-145) Potassium Level 3.4 mmol/L (3.5-5.1) 4.1 mmol/L (3.5-5.1) Chloride Level 84 mmol/L (98-107) 100 mmol/L (98-107) Carbon Dioxide Level 24 mmol/L (21-32) 28 mmol/L (21-32) Anion Gap 8 (6-14) 7 (6-14) Blood Urea Nitrogen 12 mg/dL (8-26) 11 mg/dL (8-26) Creatinine 1.0 mg/dL (0.7-1.3) 1.1 mg/dL (0.7-1.3) Estimated GFR (Cockcroft-Gault) 75.7 67.8 BUN/Creatinine Ratio 12 (6-20) Glucose Level 109 mg/dL (70-99) 101 mg/dL (70-99) Calcium Level 8.7 mg/dL (8.5-10.1) 8.9 mg/dL (8.5-10.1) Phosphorus Level 2.5 mg/dL (2.6-4.7) Magnesium Level 2.0 mg/dL (1.8-2.4) Total Bilirubin 0.8 mg/dL (0.2-1.0) Aspartate Amino Transf (AST/SGOT) 79 U/L (15-37) Alanine Aminotransferase (ALT/SGPT) 93 U/L (16-63) Alkaline Phosphatase 87 U/L (46-116) WO-[id number]-Type Natriuretic Peptide 96 pg/mL (0-124) Total Protein 7.6 g/dL (6.4-8.2) Albumin 4.2 g/dL (3.4-5.0) Albumin/Globulin Ratio 1.2 (1.0-1.7) Thyroid Stimulating Hormone (TSH) 0.381 uIU/mL (0.358-3.74) Salicylates Level < 2.8 mg/dL (2.8-20.0) Salicylate Last Dose Date Unk Salicylate Last Dose Time Unk Acetaminophen Level < 2.0 mcg/ml (10-30) Acetaminophen Last Dose Date Unk Acetaminophen Last Dose Time Unk Ethyl Alcohol Level < 10 mg/dL (0-10) Brief Hospital Course Mr. Galvan is a 61 old male who presented with suicidal ideation, and hyponatremia. Patient seen by PAT team, and after discussion we agree patient is not suicidal, but his presentation to the ER was largely situational. Jarrett with PAT team is working on reaching out to his resources currently in place at [facility] and current treatment team. Repeat sodium 134; hyponatremia secondary to copious water intake (3 gallons daily) due to poor appetite of late. Discussed cut back on the amount of water he drinks, certainly not more than 1 gallon daily. He will follow up with them and can discharge home today. Discharge Information Condition at Discharge: Stable Disposition/Orders: D/C to Home Scheduled Amlodipine Besylate (Norvasc) 10 Mg Tablet, 10 MG PO DAILY08 for hypertension, (Reported) Entered as Reported by: NATALIE LOO RN on 06/11/192237 Last Action: Continued on 08/21/212139 by LILY PARTIDA MD Doxycycline Hyclate (Doxycycline Hyclate) 100 Mg Capsule, 1 CAP PO BID for toe infection, #14 Prescribed by: GARRETT BILLY on 12/21/19 0945 Eszopiclone (Lunesta) 2 Mg Tablet, 2 MG PO HS for insomnia , (Reported) Entered as Reported by: YOLY FISHER on 12/19/191717 Gabapentin (Gabapentin ) 300 Mg Capsule, 300 MG PO TID for NEUROGENIC PAIN, (Reported) Entered as Reported by: YOYL FISHER on 12/19/191717 Last Action: Continued on 08/21/212139 by LILY PARTIDA MD Lamotrigine (Lamotrigine) 300 Mg Tab.er.24, 200 MG PO BID for bipolar, (Reported) Entered as Reported by: YOLY FISHER on 12/19/191717 Last Action: Edited on 08/22/21202 by TERESA LAWSON Lisinopril (Lisinopril) 40 Mg Tablet, 40 MG PO DAILY for hypertension, #30 Ref 0 (Reported) Entered as Reported by: NATALIE LOO RN on 06/11/192237 Last Action: Continued on 08/21/212139 by LILY PARTIDA MD Mirtazapine (Remeron) 30 Mg Tablet, 30 MG PO QHS for restless leg, (Reported) Entered as Reported by: NATALIE LOO RN on 06/11/192237 Last Action: Converted on 08/21/212139 by LILY PARTIDA MD Scheduled PRN Acetaminophen (Tylenol) 325 Mg Tablet, 2 TAB PO QID PRN for PAIN, #60 Prescribed by: GARRETT BILLY on 12/21/19 0946 Tramadol Hcl (Ultram) 50 Mg Tablet, 1 TAB PO PRN TID PRN for pain MDD 3 Tablet(s), #14 Ref 0 Prescribed by: GARRETT BILLY on 12/21/19945 Justicifation of Admission Dx: Justifications for Admission: Justification of Admission Dx: Yes ROSA MARIA KOVACS MD Aug 22, 2021 14:35
[2021-08-22 14:53] VITALS: BP 110/64
== END 2021-08-22 16:32 | disposition home or self-care (01) | DRG 641 ==
LOC: ER 19:24 → 6 SOUTH 22:00
PROVIDERS: ADMIT Internal Medicine; ATTEND Internal Medicine
DX: E87.1 Hypo-osmolality and hyponatremia (principal); R45.851 Suicidal ideations; F31.9 Bipolar disorder, unspecified; F43.0 Acute stress reaction; I10 Essential (primary) hypertension; F41.9 Anxiety disorder, unspecified; R45.850 Homicidal ideations; Z79.899 Other long term (current) drug therapy; Z81.8 Family history of other mental and behavioral disorders; Z82.49 Family history of ischemic heart disease and other diseases of the circulatory system; Z85.47 Personal history of malignant neoplasm of testis; Z87.891 Personal history of nicotine dependence; Z88.5 Allergy status to narcotic agent; Z88.8 Allergy status to other drugs, medicaments and biological substances; Z90.49 Acquired absence of other specified parts of digestive tract
CPT/HCPCS: 36415; 70450; 80048; 80053; 80307; 80329; 81001; 83735; 83880; 83930; 83935; 84100; 84443; 85025; G0480; J2060; 99285-25; G0378; Q0163